=== PATIENT | female | born 1995 | race Caucasian/White ===

== ENCOUNTER 2016-08-08 21:41 | Emergency (ER) | payer OTHER ==
[2016-08-08 23:25] LABS: BASO % 0.5 % (0.0-1.0); EOS # 0.4 K/mm3 (0.0-0.50); EOS % 6.1 % (0.0-3.0); LARGE UNSTAINED CELL # 0.1 K/mm3 (0.0-0.4); LARGE UNSTAINED CELL % 1.8 % (0.0-4.0); LYMPH # 1.5 K/mm3 (1.5-6.5); LYMPH % 22.1 % (24.0-44.0); MEAN CORPUSCULAR HGB CONC 32.8 g/dl (32.0-36.5); MEAN CORPUSCULAR VOLUME 91.7 fl (80.0-96.0); MONO # 0.5 K/mm3 (0.0-0.8); MONO % 8.5 % (0.0-5.0); NEUTROPHILS # 3.8 K/mm3 (1.8-7.7); NEUTROPHILS % 61.1 % (36.0-66.0); PLATELET COUNT, AUTOMATED 279 k/mm3 (150-450); RED CELL DISTRIBUTION WIDTH 12.4 % (11.5-14.5); WHITE BLOOD COUNT 6.2 K/mm3 (4.0-10.0)
[2016-08-08 23:45] LABS: CONTROL LINE HCG INT CTR LINE PRESENT
[2016-08-08 23:50] LABS: ANION GAP 6 MEQ/L (8-16); BLOOD UREA NITROGEN 11 MG/DL (7-18); CALCIUM LEVEL 8.9 MG/DL (8.5-10.1); CARBON DIOXIDE LEVEL 27 MEQ/L (21-32); CHLORIDE LEVEL 105 MEQ/L (98-107); CREATININE FOR GFR 0.79 MG/DL (0.55-1.02); GLOMERULAR FILTRATION RATE > 60.0 (>60); GLUCOSE, FASTING 99 MG/DL (70-105); POTASSIUM SERUM 4.1 MEQ/L (3.5-5.1); SODIUM LEVEL 138 MEQ/L (136-145)
[2016-08-09] MEDS ORDERED: ISOVUE-370 76% 100ML VIAL (Q9967) As Ordered ONE (00:34)
--- NOTE | 2016-08-09 01:10 | REPUSA ---
CLINICAL HISTORY: Dyspnea, exclude PE. TECHNIQUE: Multiple incremental axial, coronal and oblique images are obtained from the thoracic inle t to the upper abdomen. Intravenous contrast material was administered as per pulmonary embolism prot ocol. COMMENTS: There is excellent opacification of pulmonary arterial system without evidence for pulmonary embolism . Aorta is of normal caliber without evidence for dissection or aneurysm. There is no evidence of pleural or parenchymal mass. There are no pleural effusions. There is no evid ence of hilar or mediastinal lymphadenopathy. The heart and great vessels are within normal limits. Images of the upper abdomen demonstrate no evidence of adrenal mass. Bilateral basilar atelectatic pu lmonary changes. The bony structures are free of lytic or blastic lesions. Multilevel degenerative changes are seen in volving the visualized thoracolumbar spine. Scattered calcifications are seen involving the aorta and major branches compatible with atherosclero sis. IMPRESSION: No evidence for pulmonary embolism. Thank you for your kind referral of this patient.
[2016-08-09] MEDS ORDERED: guaiFENesin SYRUP 200 MG/10 ML UDC As Ordered ONE (01:32)
[2016-08-09] MEDS ORDERED: guaiFENesin DM LIQ 10ML UD As Ordered ONE (01:33)
--- NOTE | 2016-08-09 01:43 | EDDOCDS ---
Nurse's Notes [facility] Name: Gudelia Villa Age: 21 yrs Sex: Female : 1995 Arrival Date: 08/08/2016 Time: 21:41 Bed 8 Private MD: Other - Complete Info On Cds Diagnosis: Acute upper respiratory infection, unspecified-viral;Cough Presentation: 08/08 21:48 Presenting complaint: Patient states: Cough for last 4 days, chest tight, bringing up [facility] green phlegm. Aspirin was not taken prior to arrival. Adult Sepsis Screening: The patient does not have new or worsening altered mentation. Patient's respiratory rate is less than 22. Systolic blood pressure is greater than 100. Patient has a qSOFA score of 0- Negative Sepsis Screen. Suicide/Homicide risk assessment- the patient denies having any suicidal and/or homicidal ideations and does not present with any other emotional, behavioral or mental health complaints. 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 Transition of care: patient was not received from another setting of care. 21:48 Acuity: MAT Level 4 [facility] 21:48 Method Of Arrival: Walkin/Carried/Asstd [facility] Triage Assessment: 21:50 General: Appears in no apparent distress, Behavior is cooperative. Pain: Location: [facility] throat Pain currently is 6 out of 10 on a pain scale. HIV screening NA for this visit Offered previously. Neurological: No deficits noted. Cardiovascular: Chest pain is described as vague, radiates Does not radiate. episodes are intermittent began 4 days ago. Respiratory: Airway is patent Respiratory effort is even, unlabored, Reports cough that is productive, persistent. Derm: Skin is pink, warm & dry. 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 BCP 1 tab once daily - PMHx: none; - PSHx: none; - Social history: Smoking status: Patient states was never smoker of tobacco. No barriers to communication noted, The patient speaks fluent Sao Tomean. - Family history: Not pertinent. - : The pt / caregiver states he / she is not on anticoagulants. Home medication list is obtained from the patient. 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 Screenin:22 Screening information is obtained from the patient. Screening information is obtained ko2 from the patient. Fall risk: No risks identified. Assistance ADL's: requires no assistance with activities of daily living. Abuse/DV Screen: The patient / caregiver reports he/she is: not in a situation that causes fear, pain or injury. Nutritional screening: No deficits noted. Advance Directives: Currently, there is no health care proxy. There is no active DNR order. There is no living will. 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 home support is adequate. Assessment: 23:22 General: Appears in no apparent distress, comfortable, Behavior is appropriate for age, ko2 cooperative. Pain: Denies pain. Neurological: Level of Consciousness is awake, alert. Cardiovascular: Capillary refill < 3 seconds Heart tones S1 S2 present Rhythm is. Respiratory: Airway is patent Respiratory effort is even, unlabored, Respiratory pattern is regular, symmetrical. Derm: Skin is normal. 08/09 00:29 General: Appears in no apparent distress, comfortable, Behavior is appropriate for age, ko2 cooperative. Pain: Denies pain. Neurological: Level of Consciousness is awake, alert. Respiratory: Airway is patent Respiratory effort is even, unlabored, Respiratory pattern is regular, symmetrical. Derm: Skin is normal. 01:10 General: Appears in no apparent distress, comfortable, pt currently resting on ko2 stretcher. No concerns at this time.. 01:40 General: Appears in no apparent distress, comfortable, Behavior is appropriate for age, ko2 cooperative. Pain: Denies pain. Neurological: Level of Consciousness is awake, alert. Respiratory: Airway is patent Respiratory effort is even, unlabored, Respiratory pattern is regular, symmetrical. Derm: Skin is normal. Vital Signs: 08/08 21:43 BP 126 / 79; Pulse 76; Resp 18 S; Temp 97.1(O); Pulse Ox 100% on R/A; Weight 68.04 kg gr2 (R); Height 5 ft. 4 in. (162.56 cm) (R); Pain 4/10; 08/09 01:29 BP 123 / 58; Pulse 84; Resp 18; Temp 98.5(TE); Pulse Ox 99% on R/A; Pain 0/10; mervin 08/08 21:43 Body Mass Index 25.75 (68.04 kg, 162.56 cm) [facility] Vitals: 08/08 21:43 Log In Time: August 08, 2016 at 21:43. gr2 ED Course: 21:43 Patient visited by Ed Siegel. gr2 21:43 Other - Complete Info On Cds is Private Physician. gr2 21:43 Patient moved to Waiting gr2 21:45 Patient visited by Ed Siegel. gr2 21:45 Patient moved to Pre RCE gr2 21:49 Triage Initiated mcp 21:51 Patient visited by Arelis Torres RN. mcp 22:32 Juan Ramon Sanchez DO is Attending Physician. cs11 22:34 Belkis Ford RN is Primary Nurse. cz 22:34 Patient visited by Juan Ramon Sanchez DO. cs11 22:34 Patient moved to 8 cz 23:22 HCG,Serum Qualitative Sent. ko2 23:22 MED Profile Sent. ko2 23:22 CBC with Diff Sent. ko2 23:23 Patient visited by Belkis Ford RN. ko2 23:23 Inserted saline lock: 20 gauge in right antecubital area and blood collected. The ko2 patient tolerated the procedure well. 23:36 Patient name changed from Gudeila\S\A\S\Villa\S\ to Gudelia\S\Zander\S\Villa. EDMS 23:48 [facility] Payment Agreement was scanned into [employer] and attached to record. pm4 02/05 00:09 Patient visited by Belkis Ford RN. ko2 01:08 Patient visited by Belkis Ford,MURPHY. ko2 01:11 The patient / caregiver is instructed regarding the plan of care and ED course. Cardiac ko2 monitor on. Pulse ox on. NIBP on. 01:15 CT Chest Angio R/O PE Returned. EDMS 01:30 Patient visited by Henrietta Adkins, GURMEET. mervin 01:40 Patient visited by Belkis Ford,MURPHY. ko2 01:41 Discontinued lock intact, bleeding controlled, pressure dressing applied, No ko2 redness/swelling at site. No procedures done that require assistance. Administered Medications: 00:22 Drug: NS 0.9% 1000 ml [sodium chloride 0.9 % intravenous solution] Route: IV; Rate: ko2 bolus; Site: right antecubital; :42 Follow up: IV Status: Completed infusion; IV Intake: 1000ml ko2 01:42 Drug: Dextromethorphan-Guaifenesin 5 ml [dextromethorphan-guaifenesin 10 mg-100 mg/5 mL ko2 oral liquid (5 mL)] Route: PO; Intake: 01:42 IV: 1000.00ml; Total: 1000.00ml. ko2 Order Results: Lab Order: CBC with Diff; SPEC'M 08/08/16 23:20 Test: WHITE BLOOD COUNT; Value: 6.2; Range: 4.0-10.0; Units: K/mm3; Status: F Test: RED BLOOD COUNT; Value: 4.21; Range: 4.00-5.40; Units: M/mm3; Status: F Test: HEMOGLOBIN; Value: 12.7; Range: 12.0-16.0; Units: g/dl; Status: F Test: HEMATOCRIT; Value: 38.6; Range: 36.0-47.0; Units: %; Status: F Test: MEAN CORPUSCULAR VOLUME; Value: 91.7; Range: 80.0-96.0; Units: fl; Status: F Test: MEAN CORPUSCULAR HEMOGLOBIN; Value: 30.0; Range: 27.0-33.0; Units: pg; Status: F Test: MEAN CORPUSCULAR HGB CONC; Value: 32.8; Range: 32.0-36.5; Units: g/dl; Status: F Test: RED CELL DISTRIBUTION WIDTH; Value: 12.4; Range: 11.5-14.5; Units: %; Status: F Test: PLATELET COUNT, AUTOMATED; Value: 279; Range: 150-450; Units: k/mm3; Status: F Test: NEUTROPHILS %; Value: 61.1; Range: 36.0-66.0; Units: %; Status: F Test: LYMPH %; Value: 22.1; Range: 24.0-44.0; Abnormal: Below low normal; Units: %; Status: F Test: MONO %; Value: 8.5; Range: 0.0-5.0; Abnormal: Above high normal; Units: %; Status: F Test: EOS %; Value: 6.1; Range: 0.0-3.0; Abnormal: Above high normal; Units: %; Status: F Test: BASO %; Value: 0.5; Range: 0.0-1.0; Units: %; Status: F Test: LARGE UNSTAINED CELL %; Value: 1.8; Range: 0.0-4.0; Units: %; Status: F Test: NEUTROPHILS #; Value: 3.8; Range: 1.8-7.7; Units: K/mm3; Status: F Test: LYMPH #; Value: 1.5; Range: 1.5-6.5; Units: K/mm3; Status: F Test: MONO #; Value: 0.5; Range: 0.0-0.8; Units: K/mm3; Status: F Test: EOS #; Value: 0.4; Range: 0.0-0.50; Units: K/mm3; Status: F Test: BASO #; Value: 0.0; Range: 0.0-0.2; Units: K/mm3; Status: F Test: LARGE UNSTAINED CELL #; Value: 0.1; Range: 0.0-0.4; Units: K/mm3; Status: F Lab Order: MED Profile; [facility]' 08/08/16 23:20 Test: GLUCOSE, FASTING; Value: 99; Range: 70-105; Units: MG/DL; Status: F Test: BLOOD UREA NITROGEN; Value: 11; Range: 7-18; Units: MG/DL; Status: F Test: CREATININE FOR GFR; Value: 0.79; Range: 0.55-1.02; Units: MG/DL; Status: F Test: SODIUM LEVEL; Range: 136-145; Units: MEQ/L; Status: I Test: POTASSIUM SERUM; Range: 3.5-5.1; Units: MEQ/L; Status: I Test: CHLORIDE LEVEL; Range: 98-107; Units: MEQ/L; Status: I Test: CARBON DIOXIDE LEVEL; Range: 21-32; Units: MEQ/L; Status: I Test: ANION GAP; Range: 8-16; Units: MEQ/L; Status: I Test: CALCIUM LEVEL; Range: 8.5-10.1; Units: MG/DL; Status: I Test: GLOMERULAR FILTRATION RATE; Value: > 60.0; Range: >60; Status: F Test: SODIUM LEVEL; Value: 138; Range: 136-145; Units: MEQ/L; Status: F Test: POTASSIUM SERUM; Value: 4.1; Range: 3.5-5.1; Units: MEQ/L; Status: F Test: CHLORIDE LEVEL; Value: 105; Range: 98-107; Units: MEQ/L; Status: F Test: CARBON DIOXIDE LEVEL; Value: 27; Range: 21-32; Units: MEQ/L; Status: F Test: ANION GAP; Value: 6; Range: 8-16; Abnormal: Below low normal; Units: MEQ/L; Status: F Test: CALCIUM LEVEL; Value: 8.9; Range: 8.5-10.1; Units: MG/DL; Status: F Test Note: ; Units are mL/min/1.73 m2 Chronic Kidney Disease Staging per NKF: Stage I & II GFR >=60 Normal to Mildly Decreased Stage III GFR 30-59 Moderately Decreased Stage IV GFR 15-29 Severely Decreased Stage V GFR <15 Very Little GFR Left ESRD GFR <15 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 Intravenous contrast material was administered as per pulmonary embolism prot; ocol.; COMMENTS:; There is excellent opacification of pulmonary arterial system without evidence for pulmonary embolism; . Aorta is of normal caliber without evidence for dissection or aneurysm.; There is no evidence of pleural or parenchymal mass. There are no pleural effusions. There is no evid; ence of hilar or mediastinal lymphadenopathy. The heart and great vessels are within normal limits.; Images of the upper abdomen demonstrate no evidence of adrenal mass. Bilateral basilar atelectatic pu; lmonary changes.; The bony structures are free of lytic or blastic lesions. Multilevel degenerative changes are seen in; volving the visualized thoracolumbar spine.; Scattered calcifications are seen involving the aorta and major branches compatible with atherosclero; sis.; IMPRESSION:; No evidence for pulmonary embolism.; Thank you for your kind referral of this patient.; ; Outcome: 01:11 CT Study completed. ko2 01:27 Discharge ordered by Provider. cs11 01:41 Discharge Assessment: Patient awake, alert and oriented x 3. No cognitive and/or ko2 functional deficits noted. Patient verbalized understanding of disposition instructions. patient administered narcotics - no. The following High Risk Discharge criteria are identified: None. Discharged to home ambulatory. Condition: stable. Discharge instructions given to patient, Instructed on discharge instructions, follow up and referral plans. medication usage, Demonstrated understanding of instructions, medications, Pt was receptive of discharge instructions/ teaching. Prescriptions given X 1. Property sent home with patient. 01:43 Patient left the ED. ko2 Signatures: Dispatcher [employer] EDArelis Meek, RN RN Olegario Whitley, MURPHY RN Henrietta Guido, SENIOR TECHNOLOGIST SENIOR TECHNOLOGIST Juan Ramon Vasquez, DO DO cs11 Ed Siegel gr2 Belkis Ford RN RN ko2 Rocky Nettles, Reg Reg pm4 CLAUDIA
--- NOTE | 2016-08-09 01:43 | EDDOCDS ---
Physician Documentation [facility] Name: Gudelia Villa Age: 21 yrs Sex: Female : 1995 Arrival Date: 08/08/2016 Time: 21:41 Bed 8 Private MD: Other - Complete Info On Cds Disposition: 08/09/16 01:27 Discharged to Home/Self Care. Impression: Acute upper respiratory infection, unspecified - viral, Cough. - Condition is Stable. - Prescriptions for dextromethorphan- guaifenesin 30-200 mg/5 mL Oral liquid - take 5 milliliter by ORAL route every 6 hours as needed; 1 bottle. - Medication Reconciliation, Local Pharmacy Hours form. - Follow up: Private Physician; When: Call to arrange an appointment; Reason: Recheck today's complaints. - Problem is an ongoing problem. - Symptoms have improved. Historical: - Allergies: no known allergies; - Home Meds: 1. BCP 1 tab once daily - PMHx: none; - PSHx: none; - Social history: Smoking status: Patient states was never smoker of tobacco. No barriers to communication noted, The patient speaks fluent Arabic. - Family history: Not pertinent. - : The pt / caregiver states he / she is not on anticoagulants. Home medication list is obtained from the patient. 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 4 in. (162.56 cm) (R); Pain 4/10; 08/09 01:29 BP 123 / 58; Pulse 84; Resp 18; Temp 98.5(TE); Pulse Ox 99% on R/A; Pain 0/10; mervin 08/08 21:43 Body Mass Index 25.75 (68.04 kg, 162.56 cm) gr2 MDM: 08/08 21:55 Chest, 2 View (pa\E\lat) Ordered. EDMS 22:49 IV Saline Lock ordered. cs11 22:50 CBC with Diff Ordered. EDMS 22:50 MED Profile Ordered. EDMS 22:50 HCG,Serum Qualitative Ordered. EDMS 23:13 Financial registration complete. pm4 23:48 [facility] Payment Agreement was scanned into [employer] and attached to record. pm4 23:55 CBC with Diff Reviewed. cs11 23:55 MED Profile Reviewed. cs11 23:55 HCG,Serum Qualitative Reviewed. cs11 23:56 NS 0.9% 1000 ml IV at bolus once ordered. cs11 23:57 CT Chest Angio R/O PE Ordered. EDMS 08/09 01:23 Dextromethorphan-Guaifenesin Liquid 10 mg-100 mg/5 mL 5 ml PO once ordered. cs11 01:24 CT Chest Angio R/O PE Reviewed. cs11 Administered Medications: 00:22 Drug: NS 0.9% 1000 ml [sodium chloride 0.9 % intravenous solution] Route: IV; Rate: ko2 bolus; Site: right antecubital; 01:42 Follow up: IV Status: Completed infusion; IV Intake: 1000ml ko2 01:42 Drug: Dextromethorphan-Guaifenesin 5 ml [dextromethorphan-guaifenesin 10 mg-100 mg/5 mL ko2 oral liquid (5 mL)] Route: PO; Signatures: Dispatcher [employer] [facility] Arelis Torres RN RN mcp Schiff, Craig, DO DO cs11 Belkis Ford RN RN ko2 Rocky Nettles, Reg Reg pm4 The chart was reviewed and I authenticate all verbal orders and agree with the evaluation and treatment provided.Attachments: 08/08 23:48 [facility] Payment Agreement pm4 MTDD
--- NOTE | 2016-08-09 08:31 | REP ---
CHEST X-RAY: Two views. HISTORY: Cough . No comparison study . FINDINGS: The lungs are well inflated and free of infiltrate. The pleural angles are sharp. The heart size is normal. Pulmonary vasculature is not increased. No significant bony abnormality is seen. IMPRESSION: Negative chest x-ray. Signed by Damon Pace MD 08/09/2016 11:01 A
--- NOTE | 2016-08-11 02:43 | EDDOCDS ---
Physician Documentation [facility] Name: Gudelia Villa Age: 21 yrs Sex: Female : 1995 Arrival Date: 08/08/2016 Time: 21:41 Bed 8 Private MD: Other - Complete Info On Cds Disposition: 08/09/16 01:27 Discharged to Home/Self Care. Impression: Acute upper respiratory infection, unspecified - viral, Cough. - Condition is Stable. - Prescriptions for dextromethorphan- guaifenesin 30-200 mg/5 mL Oral liquid - take 5 milliliter by ORAL route every 6 hours as needed; 1 bottle. - Medication Reconciliation, Local Pharmacy Hours form. - Follow up: Private Physician; When: Call to arrange an appointment; Reason: Recheck today's complaints. - Problem is an ongoing problem. - Symptoms have improved. Historical: - Allergies: no known allergies; - Home Meds: 1. BCP 1 tab once daily - PMHx: none; - PSHx: none; - Social history: Smoking status: Patient states was never smoker of tobacco. No barriers to communication noted, The patient speaks fluent Icelandic. - Family history: Not pertinent. - : The pt / caregiver states he / she is not on anticoagulants. Home medication list is obtained from the patient. 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 4 in. (162.56 cm) (R); Pain 4/10; 08/09 01:29 BP 123 / 58; Pulse 84; Resp 18; Temp 98.5(TE); Pulse Ox 99% on R/A; Pain 0/10; mervin 08/08 21:43 Body Mass Index 25.75 (68.04 kg, 162.56 cm) gr2 MDM: 08/08 21:55 Chest, 2 View (pa\E\lat) Ordered. EDMS 22:49 IV Saline Lock ordered. cs11 22:50 CBC with Diff Ordered. EDMS 22:50 MED Profile Ordered. EDMS 22:50 HCG,Serum Qualitative Ordered. EDMS 23:13 Financial registration complete. pm4 23:48 [facility] Payment Agreement was scanned into [employer] and attached to record. pm4 23:55 CBC with Diff Reviewed. cs11 23:55 MED Profile Reviewed. cs11 23:55 HCG,Serum Qualitative Reviewed. cs11 23:56 NS 0.9% 1000 ml IV at bolus once ordered. cs11 23:57 CT Chest Angio R/O PE Ordered. EDMS 0205 01:23 Dextromethorphan-Guaifenesin Liquid 10 mg-100 mg/5 mL 5 ml PO once ordered. cs11 01:24 CT Chest Angio R/O PE Reviewed. cs11 11:42 T-Sheet-- Draft Copy was scanned into [employer] and attached to record. gb Administered Medications: 00:22 Drug: NS 0.9% 1000 ml [sodium chloride 0.9 % intravenous solution] Route: IV; Rate: ko2 bolus; Site: right antecubital; 01:42 Follow up: IV Status: Completed infusion; IV Intake: 1000ml ko2 01:42 Drug: Dextromethorphan-Guaifenesin 5 ml [dextromethorphan-guaifenesin 10 mg-100 mg/5 mL ko2 oral liquid (5 mL)] Route: PO; Signatures: Dispatcher [employer] [facility] Arelis Torres RN MURPHY [facility] Lorrie De La Vega, Reg Reg gb Juan Ramon Sanchez DO DO cs11 Belkis Ford RN RN ko2 Rocky Nettles, Reg Reg pm4 The chart was reviewed and I authenticate all verbal orders and agree with the evaluation and treatment provided.Attachments: 08/08 23:48 [facility] Payment Agreement pm4 08/09 11:42 T-Sheet-- Draft Copy gb Chart Complete MTDD
--- NOTE | 2016-08-11 02:43 | EDDOCDS ---
Physician Documentation [facility] Name: Gudelia Villa Age: 21 yrs Sex: Female : 1995 Arrival Date: 08/08/2016 Time: 21:41 Bed 8 Private MD: Other - Complete Info On Cds Disposition: 08/09/16 01:27 Discharged to Home/Self Care. Impression: Acute upper respiratory infection, unspecified - viral, Cough. - Condition is Stable. - Prescriptions for dextromethorphan- guaifenesin 30-200 mg/5 mL Oral liquid - take 5 milliliter by ORAL route every 6 hours as needed; 1 bottle. - Medication Reconciliation, Local Pharmacy Hours form. - Follow up: Private Physician; When: Call to arrange an appointment; Reason: Recheck today's complaints. - Problem is an ongoing problem. - Symptoms have improved. Historical: - Allergies: no known allergies; - Home Meds: 1. BCP 1 tab once daily - PMHx: none; - PSHx: none; - Social history: Smoking status: Patient states was never smoker of tobacco. No barriers to communication noted, The patient speaks fluent Kiswahili. - Family history: Not pertinent. - : The pt / caregiver states he / she is not on anticoagulants. Home medication list is obtained from the patient. 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 4 in. (162.56 cm) (R); Pain 4/10; 08/09 01:29 BP 123 / 58; Pulse 84; Resp 18; Temp 98.5(TE); Pulse Ox 99% on R/A; Pain 0/10; mervin 08/08 21:43 Body Mass Index 25.75 (68.04 kg, 162.56 cm) gr2 MDM: 08/08 21:55 Chest, 2 View (pa\E\lat) Ordered. EDMS 22:49 IV Saline Lock ordered. cs11 22:50 CBC with Diff Ordered. EDMS 22:50 MED Profile Ordered. EDMS 22:50 HCG,Serum Qualitative Ordered. EDMS 23:13 Financial registration complete. pm4 23:48 [facility] Payment Agreement was scanned into [employer] and attached to record. pm4 23:55 CBC with Diff Reviewed. cs11 23:55 MED Profile Reviewed. cs11 23:55 HCG,Serum Qualitative Reviewed. cs11 23:56 NS 0.9% 1000 ml IV at bolus once ordered. cs11 23:57 CT Chest Angio R/O PE Ordered. EDMS 0205 01:23 Dextromethorphan-Guaifenesin Liquid 10 mg-100 mg/5 mL 5 ml PO once ordered. cs11 01:24 CT Chest Angio R/O PE Reviewed. cs11 11:42 T-Sheet-- Draft Copy was scanned into [employer] and attached to record. gb Administered Medications: 00:22 Drug: NS 0.9% 1000 ml [sodium chloride 0.9 % intravenous solution] Route: IV; Rate: ko2 bolus; Site: right antecubital; 01:42 Follow up: IV Status: Completed infusion; IV Intake: 1000ml ko2 01:42 Drug: Dextromethorphan-Guaifenesin 5 ml [dextromethorphan-guaifenesin 10 mg-100 mg/5 mL ko2 oral liquid (5 mL)] Route: PO; Signatures: Dispatcher [employer] [facility] Arelis Torres RN MURPHY [facility] Lorrie De La Vega, Reg Reg gb Juan Ramon Sanchez DO DO cs11 Belkis Ford RN RN ko2 Rocky Nettles, Reg Reg pm4 The chart was reviewed and I authenticate all verbal orders and agree with the evaluation and treatment provided.Attachments: 08/08 23:48 [facility] Payment Agreement pm4 08/09 11:42 T-Sheet-- Draft Copy gb Chart Complete MTDD
--- NOTE | 2016-08-11 02:44 | EDDOCDS ---
Nurse's Notes [facility] Name: Gudelia Villa Age: 21 yrs Sex: Female : 1995 Arrival Date: 08/08/2016 Time: 21:41 Bed 8 Private MD: Other - Complete Info On Cds Diagnosis: Acute upper respiratory infection, unspecified-viral;Cough Presentation: 08/08 21:48 Presenting complaint: Patient states: Cough for last 4 days, chest tight, bringing up [facility] green phlegm. Aspirin was not taken prior to arrival. Adult Sepsis Screening: The patient does not have new or worsening altered mentation. Patient's respiratory rate is less than 22. Systolic blood pressure is greater than 100. Patient has a qSOFA score of 0- Negative Sepsis Screen. Suicide/Homicide risk assessment- the patient denies having any suicidal and/or homicidal ideations and does not present with any other emotional, behavioral or mental health complaints. 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 Transition of care: patient was not received from another setting of care. 21:48 Acuity: MAT Level 4 [facility] 21:48 Method Of Arrival: Walkin/Carried/Asstd [facility] Triage Assessment: 21:50 General: Appears in no apparent distress, Behavior is cooperative. Pain: Location: [facility] throat Pain currently is 6 out of 10 on a pain scale. HIV screening NA for this visit Offered previously. Neurological: No deficits noted. Cardiovascular: Chest pain is described as vague, radiates Does not radiate. episodes are intermittent began 4 days ago. Respiratory: Airway is patent Respiratory effort is even, unlabored, Reports cough that is productive, persistent. Derm: Skin is pink, warm & dry. 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 BCP 1 tab once daily - PMHx: none; - PSHx: none; - Social history: Smoking status: Patient states was never smoker of tobacco. No barriers to communication noted, The patient speaks fluent Jordanian. - Family history: Not pertinent. - : The pt / caregiver states he / she is not on anticoagulants. Home medication list is obtained from the patient. 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 Screenin:22 Screening information is obtained from the patient. Screening information is obtained ko2 from the patient. Fall risk: No risks identified. Assistance ADL's: requires no assistance with activities of daily living. Abuse/DV Screen: The patient / caregiver reports he/she is: not in a situation that causes fear, pain or injury. Nutritional screening: No deficits noted. Advance Directives: Currently, there is no health care proxy. There is no active DNR order. There is no living will. There is no Power of Beater Machine Operator. home support is adequate. Assessment: 23:22 General: Appears in no apparent distress, comfortable, Behavior is appropriate for age, ko2 cooperative. Pain: Denies pain. Neurological: Level of Consciousness is awake, alert. Cardiovascular: Capillary refill < 3 seconds Heart tones S1 S2 present Rhythm is. Respiratory: Airway is patent Respiratory effort is even, unlabored, Respiratory pattern is regular, symmetrical. Derm: Skin is normal. 08/09 00:29 General: Appears in no apparent distress, comfortable, Behavior is appropriate for age, ko2 cooperative. Pain: Denies pain. Neurological: Level of Consciousness is awake, alert. Respiratory: Airway is patent Respiratory effort is even, unlabored, Respiratory pattern is regular, symmetrical. Derm: Skin is normal. 01:10 General: Appears in no apparent distress, comfortable, pt currently resting on ko2 stretcher. No concerns at this time.. 01:40 General: Appears in no apparent distress, comfortable, Behavior is appropriate for age, ko2 cooperative. Pain: Denies pain. Neurological: Level of Consciousness is awake, alert. Respiratory: Airway is patent Respiratory effort is even, unlabored, Respiratory pattern is regular, symmetrical. Derm: Skin is normal. Vital Signs: 08/08 21:43 BP 126 / 79; Pulse 76; Resp 18 S; Temp 97.1(O); Pulse Ox 100% on R/A; Weight 68.04 kg gr2 (R); Height 5 ft. 4 in. (162.56 cm) (R); Pain 4/10; 08/09 01:29 BP 123 / 58; Pulse 84; Resp 18; Temp 98.5(TE); Pulse Ox 99% on R/A; Pain 0/10; mervin 08/08 21:43 Body Mass Index 25.75 (68.04 kg, 162.56 cm) [facility] Vitals: 08/08 21:43 Log In Time: August 08, 2016 at 21:43. gr2 ED Course: 21:43 Patient visited by Ed Siegel. gr2 21:43 Other - Complete Info On Cds is Private Physician. gr2 21:43 Patient moved to Waiting gr2 21:45 Patient visited by Ed Siegel. gr2 21:45 Patient moved to Pre RCE gr2 21:49 Triage Initiated mcp 21:51 Patient visited by Arelis Torres RN. mcp 22:32 Juan Ramon Sanchez DO is Attending Physician. cs11 22:34 Belkis Ford RN is Primary Nurse. cz 22:34 Patient visited by Juan Ramon Sanchez DO. cs11 22:34 Patient moved to 8 cz 23:22 HCG,Serum Qualitative Sent. ko2 23:22 MED Profile Sent. ko2 23:22 CBC with Diff Sent. ko2 23:23 Patient visited by Belkis Ford RN. ko2 23:23 Inserted saline lock: 20 gauge in right antecubital area and blood collected. The ko2 patient tolerated the procedure well. 23:36 Patient name changed from Gudelia\S\A\S\Villa\S\ to Gudelia\S\Zander\S\Villa. EDMS 23:48 [facility] [place] was scanned into [employer] and attached to record. pm4 02/05 00:09 Patient visited by Belkis Ford RN. ko2 01:08 Patient visited by Belkis Ford,MURPHY. ko2 01:11 The patient / caregiver is instructed regarding the plan of care and ED course. Cardiac ko2 monitor on. Pulse ox on. NIBP on. 01:15 CT Chest Angio R/O PE Returned. EDMS 01:30 Patient visited by Henrietta Adkins, GURMEET. mervin 01:40 Patient visited by Belkis Ford,MURPHY. ko2 01:41 Discontinued lock intact, bleeding controlled, pressure dressing applied, No ko2 redness/swelling at site. No procedures done that require assistance. 08:45 Chest, 2 View (pa\E\lat) Returned. EDMS 11:42 T-Sheet-- Draft Copy was scanned into [employer] and attached to record. gb Administered Medications: 00:22 Drug: NS 0.9% 1000 ml [sodium chloride 0.9 % intravenous solution] Route: IV; Rate: ko2 bolus; Site: right antecubital; 01:42 Follow up: IV Status: Completed infusion; IV Intake: 1000ml ko2 01:42 Drug: Dextromethorphan-Guaifenesin 5 ml [dextromethorphan-guaifenesin 10 mg-100 mg/5 mL ko2 oral liquid (5 mL)] Route: PO; Intake: 01:42 IV: 1000.00ml; Total: 1000.00ml. ko2 Order Results: Lab Order: CBC with Diff; SPEC'M 08/08/16 23:20 Test: WHITE BLOOD COUNT; Value: 6.2; Range: 4.0-10.0; Units: K/mm3; Status: F Test: RED BLOOD COUNT; Value: 4.21; Range: 4.00-5.40; Units: M/mm3; Status: F Test: HEMOGLOBIN; Value: 12.7; Range: 12.0-16.0; Units: g/dl; Status: F Test: HEMATOCRIT; Value: 38.6; Range: 36.0-47.0; Units: %; Status: F Test: MEAN CORPUSCULAR VOLUME; Value: 91.7; Range: 80.0-96.0; Units: fl; Status: F Test: MEAN CORPUSCULAR HEMOGLOBIN; Value: 30.0; Range: 27.0-33.0; Units: pg; Status: F Test: MEAN CORPUSCULAR HGB CONC; Value: 32.8; Range: 32.0-36.5; Units: g/dl; Status: F Test: RED CELL DISTRIBUTION WIDTH; Value: 12.4; Range: 11.5-14.5; Units: %; Status: F Test: PLATELET COUNT, AUTOMATED; Value: 279; Range: 150-450; Units: k/mm3; Status: F Test: NEUTROPHILS %; Value: 61.1; Range: 36.0-66.0; Units: %; Status: F Test: LYMPH %; Value: 22.1; Range: 24.0-44.0; Abnormal: Below low normal; Units: %; Status: F Test: MONO %; Value: 8.5; Range: 0.0-5.0; Abnormal: Above high normal; Units: %; Status: F Test: EOS %; Value: 6.1; Range: 0.0-3.0; Abnormal: Above high normal; Units: %; Status: F Test: BASO %; Value: 0.5; Range: 0.0-1.0; Units: %; Status: F Test: LARGE UNSTAINED CELL %; Value: 1.8; Range: 0.0-4.0; Units: %; Status: F Test: NEUTROPHILS #; Value: 3.8; Range: 1.8-7.7; Units: K/mm3; Status: F Test: LYMPH #; Value: 1.5; Range: 1.5-6.5; Units: K/mm3; Status: F Test: MONO #; Value: 0.5; Range: 0.0-0.8; Units: K/mm3; Status: F Test: EOS #; Value: 0.4; Range: 0.0-0.50; Units: K/mm3; Status: F Test: BASO #; Value: 0.0; Range: 0.0-0.2; Units: K/mm3; Status: F Test: LARGE UNSTAINED CELL #; Value: 0.1; Range: 0.0-0.4; Units: K/mm3; Status: F Lab Order: MED Profile; [facility] 08/08/16 23:20 Test: GLUCOSE, FASTING; Value: 99; Range: 70-105; Units: MG/DL; Status: F Test: BLOOD UREA NITROGEN; Value: 11; Range: 7-18; Units: MG/DL; Status: F Test: CREATININE FOR GFR; Value: 0.79; Range: 0.55-1.02; Units: MG/DL; Status: F Test: SODIUM LEVEL; Range: 136-145; Units: MEQ/L; Status: I Test: POTASSIUM SERUM; Range: 3.5-5.1; Units: MEQ/L; Status: I Test: CHLORIDE LEVEL; Range: 98-107; Units: MEQ/L; Status: I Test: CARBON DIOXIDE LEVEL; Range: 21-32; Units: MEQ/L; Status: I Test: ANION GAP; Range: 8-16; Units: MEQ/L; Status: I Test: CALCIUM LEVEL; Range: 8.5-10.1; Units: MG/DL; Status: I Test: GLOMERULAR FILTRATION RATE; Value: > 60.0; Range: >60; Status: F Test: SODIUM LEVEL; Value: 138; Range: 136-145; Units: MEQ/L; Status: F Test: POTASSIUM SERUM; Value: 4.1; Range: 3.5-5.1; Units: MEQ/L; Status: F Test: CHLORIDE LEVEL; Value: 105; Range: 98-107; Units: MEQ/L; Status: F Test: CARBON DIOXIDE LEVEL; Value: 27; Range: 21-32; Units: MEQ/L; Status: F Test: ANION GAP; Value: 6; Range: 8-16; Abnormal: Below low normal; Units: MEQ/L; Status: F Test: CALCIUM LEVEL; Value: 8.9; Range: 8.5-10.1; Units: MG/DL; Status: F Test Note: ; Units are mL/min/1.73 m2 Chronic Kidney Disease Staging per NKF: Stage I & II GFR >=60 Normal to Mildly Decreased Stage III GFR 30-59 Moderately Decreased Stage IV GFR 15-29 Severely Decreased Stage V GFR <15 Very Little GFR Left ESRD GFR <15 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 The pleural; angles are sharp. The heart size is normal. Pulmonary vasculature is not; increased. No significant bony abnormality is seen.; ; IMPRESSION:; ; Negative chest x-ray.; ; ; Signed by; Damon Pace MD 08/09/2016 11:01 A; Radiology Order: CT Chest Angio R/O PE Test: CT Chest Angio R/O PE REASON FOR EXAMINATION: Chest Pain; ; CLINICAL HISTORY: Dyspnea, exclude PE.; TECHNIQUE: Multiple incremental axial, coronal and oblique images are obtained from the thoracic inle; t to the upper abdomen. Intravenous contrast material was administered as per pulmonary embolism prot; ocol.; COMMENTS:; There is excellent opacification of pulmonary arterial system without evidence for pulmonary embolism; . Aorta is of normal caliber without evidence for dissection or aneurysm.; There is no evidence of pleural or parenchymal mass. There are no pleural effusions. There is no evid; ence of hilar or mediastinal lymphadenopathy. The heart and great vessels are within normal limits.; Images of the upper abdomen demonstrate no evidence of adrenal mass. Bilateral basilar atelectatic pu; lmonary changes.; The bony structures are free of lytic or blastic lesions. Multilevel degenerative changes are seen in; volving the visualized thoracolumbar spine.; Scattered calcifications are seen involving the aorta and major branches compatible with atherosclero; sis.; IMPRESSION:; No evidence for pulmonary embolism.; Thank you for your kind referral of this patient.; ; Outcome: 01:11 CT Study completed. ko2 01:27 Discharge ordered by Provider. cs11 01:41 Discharge Assessment: Patient awake, alert and oriented x 3. No cognitive and/or ko2 functional deficits noted. Patient verbalized understanding of disposition instructions. patient administered narcotics - no. The following High Risk Discharge criteria are identified: None. Discharged to home ambulatory. Condition: stable. Discharge instructions given to patient, Instructed on discharge instructions, follow up and referral plans. medication usage, Demonstrated understanding of instructions, medications, Pt was receptive of discharge instructions/ teaching. Prescriptions given X 1. Property sent home with patient. 01:43 Patient left the ED. ko2 Signatures: Dispatcher [employer] EDMS Arelis Torres RN RN mcp Zecher, Calvin, RN RN cz Barnhardt, Gloria, Reg Reg gb Henrietta Adkins, SPOUT POSITIONER SPOUT POSITIONER Juan Ramon Vasquez, DO DO cs11 Ed Siegel gr2 Belkis Ford RN RN ko2 Rocky Nettles, Reg Reg pm4 Chart Complete MTDD
== END 2016-08-09 01:43 | disposition home or self-care (01) ==
LOC: M ED 21:41
DX: J06.9 Acute upper respiratory infection, unspecified (principal); Z79.3 Long term (current) use of hormonal contraceptives
CPT/HCPCS: 36415; 71020; 71275; 80048; 84703; 85025; 96360; 99285; Q9967

== ENCOUNTER 2016-08-14 01:20 | Emergency (ER) | payer OTHER ==
[2016-08-14] MEDS ORDERED: predniSONE 20 MG TAB As Ordered ONE (04:26)
[2016-08-14] MEDS ORDERED: BENZONATATE 100 MG CAP As Ordered ONE (04:28)
--- NOTE | 2016-08-14 05:28 | EDDOCDS ---
Nurse's Notes [facility] Name: Gudelia Villa Age: 21 yrs Sex: Female : 1995 Arrival Date: 08/14/2016 Time: 01:20 Bed 5 Private MD: Diagnosis: Acute bronchitis Presentation: 08/14 01:37 Presenting complaint: Patient states: cough for the past week now has a fever son also cz sick. Adult Sepsis Screening: The patient does not have new or worsening altered mentation. Patient's respiratory rate is less than 22. Systolic blood pressure is greater than 100. Patient has a qSOFA score of 0- Negative Sepsis Screen. Suicide/Homicide risk assessment- the patient denies having any suicidal and/or homicidal ideations and does not present with any other emotional, behavioral or mental health complaints. 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 Transition of care: patient was not received from another setting of care. 01:37 Method Of Arrival: Walkin/Carried/Asstd cz 02:03 Acuity: MAT Level 4 cz Triage Assessment: 01:39 General: Appears uncomfortable. Pain: Location: chest Pain currently is 6 out of 10 on cz a pain scale. HIV screening NA for this visit Offered previously. 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 BCP Oral 1 tab once daily - PMHx: none; - PSHx: none; - Social history: Smoking status: Patient states was never smoker of tobacco. No barriers to communication noted, The patient speaks fluent Pitc[place] Islander, Speaks appropriately for age. - Family history: Not pertinent. - : The pt / caregiver states he / she is not on anticoagulants. Home medication list is obtained from the patient. 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 Screenin:52 Screening information is obtained from the patient. Fall risk: No risks identified. ko2 Assistance ADL's: requires no assistance with activities of daily living. Abuse/DV Screen: The patient / caregiver reports he/she is: not in a situation that causes fear, pain or injury. Nutritional screening: No deficits noted. Advance Directives: Currently, there is no health care proxy. There is no active DNR order. There is no living will. There is no Power of Kiln Operator. home support is adequate. Assessment: 03:51 General: Appears in no apparent distress, comfortable, Behavior is appropriate for age, ko2 cooperative. Pain: Location: chest. Neurological: Level of Consciousness is awake. Respiratory: Airway is patent Respiratory effort is even, unlabored, Reports cough that is. Derm: Skin is normal. 05:26 General: Appears in no apparent distress, comfortable, Behavior is appropriate for age, ko2 cooperative. Pain: Location: chest. Neurological: Level of Consciousness is awake. Respiratory: Airway is patent Respiratory effort is even, unlabored. Derm: Skin is normal. Vital Signs: 01:39 BP 109 / 63; Pulse 77; Resp 16; Temp 98.4(T); Pulse Ox 98% on R/A; Weight 68.04 kg; cz Height 64 in. (162.56 cm); 05:17 BP 110 / 68; Pulse 72; Resp 16; Temp 98.3; Pulse Ox 99% ; Pain 0/10; ko2 01:39 Body Mass Index 25.75 (68.04 kg, 162.56 cm) Vitals: 01:39 Log In Time: August 14, 2016 at 01:20. ED Course: 01:23 Patient visited by Rocky Nettles Reg. pm4 01:23 Patient moved to Waiting pm4 01:37 Patient moved to Triage 1 cz 01:41 Patient moved to MTA Wait cz 02:03 Triage Initiated cz 03:28 Patient moved to 5 cz 03:48 Patient visited by Belkis Ford RN. ko2 03:54 Ankur Rodney DO is Attending Physician. mm11 03:54 Patient visited by Ankur Rodney DO. mm11 04:12 Patient visited by Ankur Rodney DO. mm11 04:13 [facility]. mm11 04:31 [facility] Payment Agreement was scanned into [employer] and attached to record. hs2 05:27 The patient / caregiver is instructed regarding the plan of care and ED course. ko2 05:27 No IV's were initiated during this patient's visit. No procedures done that require ko2 assistance. Administered Medications: 03:30 Drug: predniSONE 40 mg [prednisone 20 mg tablet (2 tabs)] Route: PO; ko2 03:30 Drug: Tessalon 200 mg Route: PO; ko2 Order Results: There are currently no results for this order. Outcome: 04:13 Discharge ordered by Provider. mm11 05:27 Discharge Assessment: Patient awake, alert and oriented x 3. No cognitive and/or ko2 functional deficits noted. Patient verbalized understanding of disposition instructions. patient administered narcotics - no. The following High Risk Discharge criteria are identified: None. Discharged to home ambulatory. Condition: good. Discharge instructions given to patient, Instructed on discharge instructions, follow up and referral plans. medication usage, Demonstrated understanding of instructions, medications, Pt was receptive of discharge instructions/ teaching. Prescriptions given X 3. No special radiology studies were completed. Property sent home with patient. 05:28 Patient left the ED. ko2 Signatures: Olegario Lewis, RN RN Ankur Hinson DO DO mm11 Belkis Ford RN RN ko2 Tania Dobson, Reg Reg hs2 Rocky Nettles, Reg Reg pm4 CLAUDIA
--- NOTE | 2016-08-14 05:28 | EDDOCDS ---
Physician Documentation [facility] Name: Gudelia Villa Age: 21 yrs Sex: Female : 1995 Arrival Date: 08/14/2016 Time: 01:20 Bed 5 Private MD: Disposition: 08/14/16 04:13 Discharged to Home/Self Care. Impression: Acute bronchitis. - Condition is Stable. - Discharge Instructions: Acute Bronchitis, Viral Infections, Viral Infections, [id number]. - Prescriptions for Prednisone 20 mg Oral Tablet - take 2 tablet by ORAL route once daily for 5 days; 10 tablet. Mucinex 600 mg - take 1 tablet by ORAL route 2 times per day; 30 tablet. benzonatate 200 mg Oral Capsule - take 1 capsule by ORAL route 3 times per day As needed; 30 capsule. - Medication Reconciliation, Local Pharmacy Hours, Family Work Release, Work Release Form - 1 day form. - Follow up: Sarah Pandey [facility]; When: As needed; Reason: Continuance of care. - Problem is an acute exacerbation. - Symptoms have improved. Historical: - Allergies: No known drug Allergies; - Home Meds: 1. BCP Oral 1 tab once daily - PMHx: none; - PSHx: none; - Social history: Smoking status: Patient states was never smoker of tobacco. No barriers to communication noted, The patient speaks fluent Comoran, Speaks appropriately for age. - Family history: Not pertinent. - : The pt / caregiver states he / she is not on anticoagulants. Home medication list is obtained from the patient. 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 (162.56 cm); 05:17 BP 110 / 68; Pulse 72; Resp 16; Temp 98.3; Pulse Ox 99% ; Pain 0/10; ko2 01:39 Body Mass Index 25.75 (68.04 kg, 162.56 cm) cz MDM: 04:12 predniSONE 40 mg PO once; administer with food or milk ordered. mm11 04:12 Tessalon 200 mg PO once ordered. mm11 04:27 Financial registration complete. hs2 04:31 [facility] Payment Agreement was scanned into [employer] and attached to record. hs2 Administered Medications: 03:30 Drug: predniSONE 40 mg [prednisone 20 mg tablet (2 tabs)] Route: PO; ko2 03:30 Drug: Tessalon 200 mg Route: PO; ko2 Signatures: Olegario Lewis RN RN cz Ankur Rodney DO DO mm11 Belkis Ford RN RN ko2 Tania Dobson, Reg Reg hs2 The chart was reviewed and I authenticate all verbal orders and agree with the evaluation and treatment provided.Attachments: 04:31 [facility] Payment Agreement hs2 MTDD
--- NOTE | 2016-08-16 06:29 | EDDOCDS ---
Physician Documentation [facility] Name: Gudelia Villa Age: 21 yrs Sex: Female : 1995 Arrival Date: 08/14/2016 Time: 01:20 Bed 5 Private MD: Disposition: 08/14/16 04:13 Discharged to Home/Self Care. Impression: Acute bronchitis. - Condition is Stable. - Discharge Instructions: Acute Bronchitis, Viral Infections, Viral Infections, [id number]. - Prescriptions for Prednisone 20 mg Oral Tablet - take 2 tablet by ORAL route once daily for 5 days; 10 tablet. Mucinex 600 mg - take 1 tablet by ORAL route 2 times per day; 30 tablet. benzonatate 200 mg Oral Capsule - take 1 capsule by ORAL route 3 times per day As needed; 30 capsule. - Medication Reconciliation, Local Pharmacy Hours, Family Work Release, Work Release Form - 1 day form. - Follow up: Sarah Pandey [facility]; When: As needed; Reason: Continuance of care. - Problem is an acute exacerbation. - Symptoms have improved. Historical: - Allergies: No known drug Allergies; - Home Meds: 1. BCP Oral 1 tab once daily - PMHx: none; - PSHx: none; - Social history: Smoking status: Patient states was never smoker of tobacco. No barriers to communication noted, The patient speaks fluent Nauruan, Speaks appropriately for age. - Family history: Not pertinent. - : The pt / caregiver states he / she is not on anticoagulants. Home medication list is obtained from the patient. 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 (162.56 cm); 05:17 BP 110 / 68; Pulse 72; Resp 16; Temp 98.3; Pulse Ox 99% ; Pain 0/10; ko2 01:39 Body Mass Index 25.75 (68.04 kg, 162.56 cm) cz MDM: 04:12 predniSONE 40 mg PO once; administer with food or milk ordered. mm11 04:12 Tessalon 200 mg PO once ordered. mm11 04:27 Financial registration complete. hs2 04:31 [facility] Payment Agreement was scanned into [employer] and attached to record. hs2 13:55 T-Sheet-- Draft Copy was scanned into [employer] and attached to record. gb 13:55 Growth Chart was scanned into [employer] and attached to record. gb Administered Medications: 03:30 Drug: predniSONE 40 mg [prednisone 20 mg tablet (2 tabs)] Route: PO; ko2 03:30 Drug: Tessalon 200 mg Route: PO; ko2 Signatures: Olegario Lewis, RN RN cz Lorrie De La Vega, Reg Reg gb Ankur Rodney DO DO mm11 Belkis Ford RN RN ko2 Tania Dobson, Reg Reg hs2 The chart was reviewed and I authenticate all verbal orders and agree with the evaluation and treatment provided.Attachments: 04:31 [facility] Payment Agreement hs2 13:55 T-Sheet-- Draft Copy gb Chart Complete MTDD
--- NOTE | 2016-08-16 06:29 | EDDOCDS ---
Nurse's Notes [facility] Name: Gudelia Villa Age: 21 yrs Sex: Female : 1995 Arrival Date: 08/14/2016 Time: 01:20 Bed 5 Private MD: Diagnosis: Acute bronchitis Presentation: 08/14 01:37 Presenting complaint: Patient states: cough for the past week now has a fever son also cz sick. Adult Sepsis Screening: The patient does not have new or worsening altered mentation. Patient's respiratory rate is less than 22. Systolic blood pressure is greater than 100. Patient has a qSOFA score of 0- Negative Sepsis Screen. Suicide/Homicide risk assessment- the patient denies having any suicidal and/or homicidal ideations and does not present with any other emotional, behavioral or mental health complaints. 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 Transition of care: patient was not received from another setting of care. 01:37 Method Of Arrival: Walkin/Carried/Asstd cz 02:03 Acuity: MAT Level 4 cz Triage Assessment: 01:39 General: Appears uncomfortable. Pain: Location: chest Pain currently is 6 out of 10 on cz a pain scale. HIV screening NA for this visit Offered previously. 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 BCP Oral 1 tab once daily - PMHx: none; - PSHx: none; - Social history: Smoking status: Patient states was never smoker of tobacco. No barriers to communication noted, The patient speaks fluent Armenian, Speaks appropriately for age. - Family history: Not pertinent. - : The pt / caregiver states he / she is not on anticoagulants. Home medication list is obtained from the patient. 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 Screenin:52 Screening information is obtained from the patient. Fall risk: No risks identified. ko2 Assistance ADL's: requires no assistance with activities of daily living. Abuse/DV Screen: The patient / caregiver reports he/she is: not in a situation that causes fear, pain or injury. Nutritional screening: No deficits noted. Advance Directives: Currently, there is no health care proxy. There is no active DNR order. There is no living will. There is no Power of Compliance Project Manager. home support is adequate. Assessment: 03:51 General: Appears in no apparent distress, comfortable, Behavior is appropriate for age, ko2 cooperative. Pain: Location: chest. Neurological: Level of Consciousness is awake. Respiratory: Airway is patent Respiratory effort is even, unlabored, Reports cough that is. Derm: Skin is normal. 05:26 General: Appears in no apparent distress, comfortable, Behavior is appropriate for age, ko2 cooperative. Pain: Location: chest. Neurological: Level of Consciousness is awake. Respiratory: Airway is patent Respiratory effort is even, unlabored. Derm: Skin is normal. Vital Signs: 01:39 BP 109 / 63; Pulse 77; Resp 16; Temp 98.4(T); Pulse Ox 98% on R/A; Weight 68.04 kg; cz Height 64 in. (162.56 cm); 05:17 BP 110 / 68; Pulse 72; Resp 16; Temp 98.3; Pulse Ox 99% ; Pain 0/10; ko2 01:39 Body Mass Index 25.75 (68.04 kg, 162.56 cm) Vitals: 01:39 Log In Time: August 14, 2016 at 01:20. ED Course: 01:23 Patient visited by Rocky Nettles Reg. pm4 01:23 Patient moved to Waiting pm4 01:37 Patient moved to Triage 1 cz 01:41 Patient moved to MTA Wait cz 02:03 Triage Initiated cz 03:28 Patient moved to 5 cz 03:48 Patient visited by Belkis Ford RN. ko2 03:54 Ankur Rodney DO is Attending Physician. mm11 03:54 Patient visited by Ankur Rodney DO. mm11 04:12 Patient visited by Ankur Rodney DO. mm11 04:13 Sarah Pandey [facility] is Referral Physician. mm11 04:31 [facility] Payment Agreement was scanned into [employer] and attached to record. hs2 05:27 The patient / caregiver is instructed regarding the plan of care and ED course. ko2 05:27 No IV's were initiated during this patient's visit. No procedures done that require ko2 assistance. 13:55 T-Sheet-- Draft Copy was scanned into [employer] and attached to record. gb 13:55 Growth Chart was scanned into [employer] and attached to record. gb Administered Medications: 03:30 Drug: predniSONE 40 mg [prednisone 20 mg tablet (2 tabs)] Route: PO; ko2 03:30 Drug: Tessalon 200 mg Route: PO; ko2 Attachments: 13:55 Growth Chart Order Results: There are currently no results for this order. Outcome: 04:13 Discharge ordered by Provider. mm11 05:27 Discharge Assessment: Patient awake, alert and oriented x 3. No cognitive and/or ko2 functional deficits noted. Patient verbalized understanding of disposition instructions. patient administered narcotics - no. The following High Risk Discharge criteria are identified: None. Discharged to home ambulatory. Condition: good. Discharge instructions given to patient, Instructed on discharge instructions, follow up and referral plans. medication usage, Demonstrated understanding of instructions, medications, Pt was receptive of discharge instructions/ teaching. Prescriptions given X 3. No special radiology studies were completed. Property sent home with patient. 05:28 Patient left the ED. ko2 Signatures: Olegario Lewis RN RN cz Lorrie De La Vega, Reg Reg gb Ankur Rodney DO DO mm11 Belkis Ford RN RN ko2 Tania Dobson, Reg Reg hs2 Rocky Nettles, Reg Reg pm4 Chart Complete MTDD
--- NOTE | 2016-08-16 06:29 | EDDOCDS ---
Physician Documentation [facility] Name: Gudelia Villa Age: 21 yrs Sex: Female : 1995 Arrival Date: 08/14/2016 Time: 01:20 Bed 5 Private MD: Disposition: 08/14/16 04:13 Discharged to Home/Self Care. Impression: Acute bronchitis. - Condition is Stable. - Discharge Instructions: Acute Bronchitis, Viral Infections, Viral Infections, [id number]. - Prescriptions for Prednisone 20 mg Oral Tablet - take 2 tablet by ORAL route once daily for 5 days; 10 tablet. Mucinex 600 mg - take 1 tablet by ORAL route 2 times per day; 30 tablet. benzonatate 200 mg Oral Capsule - take 1 capsule by ORAL route 3 times per day As needed; 30 capsule. - Medication Reconciliation, Local Pharmacy Hours, Family Work Release, Work Release Form - 1 day form. - Follow up: Sarah Pandey [facility]; When: As needed; Reason: Continuance of care. - Problem is an acute exacerbation. - Symptoms have improved. Historical: - Allergies: No known drug Allergies; - Home Meds: 1. BCP Oral 1 tab once daily - PMHx: none; - PSHx: none; - Social history: Smoking status: Patient states was never smoker of tobacco. No barriers to communication noted, The patient speaks fluent Wallisian, Speaks appropriately for age. - Family history: Not pertinent. - : The pt / caregiver states he / she is not on anticoagulants. Home medication list is obtained from the patient. 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 (162.56 cm); 05:17 BP 110 / 68; Pulse 72; Resp 16; Temp 98.3; Pulse Ox 99% ; Pain 0/10; ko2 01:39 Body Mass Index 25.75 (68.04 kg, 162.56 cm) cz MDM: 04:12 predniSONE 40 mg PO once; administer with food or milk ordered. mm11 04:12 Tessalon 200 mg PO once ordered. mm11 04:27 Financial registration complete. hs2 04:31 [facility] Payment Agreement was scanned into [employer] and attached to record. hs2 13:55 T-Sheet-- Draft Copy was scanned into [employer] and attached to record. gb 13:55 Growth Chart was scanned into [employer] and attached to record. gb Administered Medications: 03:30 Drug: predniSONE 40 mg [prednisone 20 mg tablet (2 tabs)] Route: PO; ko2 03:30 Drug: Tessalon 200 mg Route: PO; ko2 Signatures: Olegario Lewis, RN RN cz Lorrie De La Vega, Reg Reg gb Ankur Rodney DO DO mm11 Belkis Ford RN RN ko2 Tania Dobson, Reg Reg hs2 The chart was reviewed and I authenticate all verbal orders and agree with the evaluation and treatment provided.Attachments: 04:31 [facility] Payment Agreement hs2 13:55 T-Sheet-- Draft Copy gb Chart Complete MTDD
== END 2016-08-14 05:28 | disposition home or self-care (01) ==
LOC: M ED 01:20
DX: J20.9 Acute bronchitis, unspecified (principal)

== ENCOUNTER 2016-10-25 12:14 | Emergency (ER) | payer OTHER ==
[~2016-10-25] VITALS: Ht 162.6 cm; Wt 68.9 kg
[2016-10-25 12:15] VITALS: BP 150/71
[2016-10-25] MEDS ORDERED: BCP'S PO (12:33)
[2016-10-25] MEDS ORDERED: NAPR500T PO (14:02)
[2016-10-25] MEDS ORDERED: NAPROXEN 250 MG TAB PO ONE (14:15)
== END 2016-10-25 14:22 | disposition home or self-care (01) ==
LOC: M ED 13:51
DX: G56.01 Carpal tunnel syndrome, right upper limb (principal)

== ENCOUNTER 2017-02-11 06:07 | Emergency (ER) | payer OTHER ==
[~2017-02-11] VITALS: Ht 162.6 cm; Wt 68.2 kg
[~2017-02-11 06:07] MED LIST: BCP'S PO; NAPR500T PO
[2017-02-11 06:19] VITALS: BP 125/67
[2017-02-11] MEDS ORDERED: MACR100C43 PO (06:50)
[2017-02-11] MEDS ORDERED: NITROFURANTOIN (MACROBID) 100 MG CAP PO ONE (07:00)
== END 2017-02-11 06:54 | disposition home or self-care (01) ==
LOC: M ED 06:07
DX: N39.0 Urinary tract infection, site not specified (principal); R31.9 Hematuria, unspecified

== ENCOUNTER 2017-02-16 11:27 | Emergency (ER) | payer OTHER ==
[~2017-02-16] VITALS: Ht 162.6 cm; Wt 78.3 kg
[~2017-02-16 11:27] MED LIST changes: +MACR100C43 PO
[2017-02-16 11:28] VITALS: BP 109/67
[2017-02-16] MEDS ORDERED: BACT800T5 PO (13:14)
[2017-02-16] MEDS ORDERED: PYRI1TAB5 PO (13:14)
== END 2017-02-16 13:21 | disposition home or self-care (01) ==
LOC: M ED 11:27
DX: N39.0 Urinary tract infection, site not specified (principal)

== ENCOUNTER 2017-05-04 08:31 | Emergency (ER) | payer OTHER ==
[~2017-05-04] VITALS: Ht 162.6 cm; Wt 73.0 kg
[~2017-05-04 08:31] MED LIST changes: +BACT800T5 PO; +PYRI1TAB5 PO
[2017-05-04 08:32] VITALS: BP 119/60
[2017-05-04] MEDS ORDERED: ORTHTAB14 PO (08:55)
[2017-05-04] MEDS ORDERED: BACT800T5 PO (09:13)
== END 2017-05-04 09:28 | disposition home or self-care (01) ==
LOC: M ED 08:31
DX: N61.1 Abscess of the breast and nipple (principal)

== ENCOUNTER 2017-09-11 01:12 | Emergency (ER) | payer OTHER ==
[2017-09-11] MEDS: ONDANSETRON 4 MG ORAL DISINTEGRATING TAB (S0181) PO (01:44)
== END 2017-09-11 01:47 | disposition home or self-care (01) ==
LOC: M ED 01:12
DX: A05.9 Bacterial foodborne intoxication, unspecified (principal); Z79.899 Other long term (current) drug therapy
CPT/HCPCS: 99282

== ENCOUNTER → 2017-12-24 | Outpatient (CLI) | payer OTHER | LOC: M RAD 09:41 | DX: M24.819 Other specific joint derangements of unspecified shoulder, not elsewhere classified (principal) ==

== ENCOUNTER 2018-01-03 10:49 | Emergency (ER) | payer OTHER ==
[2018-01-03] MEDS: NEOSPORIN OINT 0.9 GM PKT (FLOOR STOCK) TOP (13:45)
== END 2018-01-03 13:50 | disposition home or self-care (01) ==
LOC: M ED 10:49
DX: S61.411A Laceration without foreign body of right hand, initial encounter (principal); W25.XXXA Contact with sharp glass, initial encounter; Y92.009 Unspecified place in unspecified non-institutional (private) residence as the place of occurrence of the external cause; Z79.3 Long term (current) use of hormonal contraceptives
CPT/HCPCS: 73130

== ENCOUNTER 2018-03-11 22:48 | Emergency (ER) | payer OTHER ==
[2018-03-11] MEDS: ACETAMINOPHEN TAB 650MG DOSE (2X325MG) PO (23:39)
[2018-03-11 23:43] LABS: BASO % 0.2 % (0.0-1.0); EOS % 0.2 % (0.0-3.0); HEMATOCRIT 36.9 % (36.0-47.0); HEMOGLOBIN 12.4 g/dl (12.0-15.5); IMMATURE GRANULOCYTE % 0.3 % (0-3.0); LYMPH # 0.6 10^3/uL (1.5-6.5); LYMPH % 6.9 % (24.0-44.0); MEAN CORPUSCULAR HEMOGLOBIN 30.4 pg (27.0-33.0); MEAN CORPUSCULAR HGB CONC 33.6 g/dl (32.0-36.5); MEAN CORPUSCULAR VOLUME 90.4 fl (80.0-96.0); MONO # 0.7 10^3/uL (0.0-0.8); MONO % 7.5 % (0.0-5.0); NEUTROPHILS # 7.7 10^3/uL (1.8-7.7); NEUTROPHILS % 84.9 % (36.0-66.0); PLATELET COUNT, AUTOMATED 248 10^3/uL (150-450); RED BLOOD COUNT 4.08 10^6/uL (4.00-5.40); RED CELL DISTRIBUTION WIDTH 12.3 % (11.5-14.5); WHITE BLOOD COUNT 9.1 10^3/uL (4.0-10.0)
[2018-03-11] MEDS: NS 1,000 ML IV (23:43)
[2018-03-11 23:48] LABS: KETONE, URINE AUTO RFX NEGATIVE (NEGATIVE); LEUKOCYTE ESTERASE UR AUTO RFX NEGATIVE (NEGATIVE); NITRITE, URINE AUTO RFX NEGATIVE (NEGATIVE); RBC, URINE AUTO RFX 0 /HPF (0-3); SPECIFIC GRAVITY UR AUTO RFX 1.004 (1.002-1.035); SQUAM EPITHELIAL CELL UR AURFX 1 /HPF (0-6); WBC, URINE AUTO RFX 2 /HPF (0-3)
[2018-03-12 00:03] LABS: ALBUMIN 3.7 GM/DL (3.2-5.2); ALBUMIN/GLOBULIN RATIO 1.19 (1.00-1.93); ALKALINE PHOSPHATASE 57 U/L (45-117); ALT/SGPT 36 U/L (12-78); ANION GAP 8 MEQ/L (8-16); AST/SGOT 18 U/L (7-37); BILIRUBIN,DIRECT < 0.1 MG/DL (0.0-0.2); BILIRUBIN,TOTAL 0.3 MG/DL (0.2-1.0); BLOOD UREA NITROGEN 9 MG/DL (7-18); CALCIUM LEVEL 8.4 MG/DL (8.5-10.1); CARBON DIOXIDE LEVEL 25 MEQ/L (21-32); CHLORIDE LEVEL 105 MEQ/L (98-107); CREATININE FOR GFR 0.85 MG/DL (0.55-1.30); GLOMERULAR FILTRATION RATE > 60.0 (>60); GLUCOSE, FASTING 100 MG/DL (70-100); LIPASE 134 U/L (73-393); POTASSIUM SERUM 3.6 MEQ/L (3.5-5.1); SODIUM LEVEL 138 MEQ/L (136-145); TOTAL PROTEIN 6.8 GM/DL (6.4-8.2)
[2018-03-12 00:04] LABS: LACTIC ACID SEPSIS PROTOCOL 0.9 MMOL/L (0.4-2.0)
== END 2018-03-12 02:41 | disposition home or self-care (01) ==
LOC: M ED 03-12 02:41
DX: R55 Syncope and collapse (principal); J32.9 Chronic sinusitis, unspecified
CPT/HCPCS: 76856

== ENCOUNTER 2018-05-10 16:16 | Emergency (ER) | payer OTHER ==
[2018-05-10] MEDS: ONDANSETRON 4MG/2ML VIAL (J2405) IV (16:53)
[2018-05-10] MEDS: NS 1,000 ML IV (16:53)
[2018-05-10] MEDS: ACETAMINOPHEN 325 MG TAB PO (16:53)
[2018-05-10] MEDS: KETOROLAC 30 MG/ML VIAL (J1885) IV (16:53)
[2018-05-10 17:24] LABS: BASO % 0.2 % (0.0-1.0); EOS % 0.3 % (0.0-3.0); HEMATOCRIT 37.3 % (36.0-47.0); HEMOGLOBIN 12.4 g/dl (12.0-15.5); IMMATURE GRANULOCYTE % 0.5 % (0-3.0); LYMPH # 0.5 10^3/uL (1.5-6.5); LYMPH % 4.3 % (24.0-44.0); MEAN CORPUSCULAR HGB CONC 33.2 g/dl (32.0-36.5); MEAN CORPUSCULAR VOLUME 90.1 fl (80.0-96.0); MONO # 0.3 10^3/uL (0.0-0.8); MONO % 2.8 % (0.0-5.0); NEUTROPHILS # 10.6 10^3/uL (1.8-7.7); NEUTROPHILS % 91.9 % (36.0-66.0); PLATELET COUNT, AUTOMATED 282 10^3/uL (150-450); RED BLOOD COUNT 4.14 10^6/uL (4.00-5.40); RED CELL DISTRIBUTION WIDTH 12.9 % (11.5-14.5); WHITE BLOOD COUNT 11.5 10^3/uL (4.0-10.0)
[2018-05-10 17:36] LABS: KETONE, URINE AUTO RFX NEGATIVE (NEGATIVE); LEUKOCYTE ESTERASE UR AUTO RFX NEGATIVE (NEGATIVE); MUCUS, URINE RFX SMALL (NEGATIVE); NITRITE, URINE AUTO RFX NEGATIVE (NEGATIVE); RBC, URINE AUTO RFX 3 /HPF (0-3); SPECIFIC GRAVITY UR AUTO RFX 1.023 (1.002-1.035); SQUAM EPITHELIAL CELL UR AURFX 4 /HPF (0-6); WBC, URINE AUTO RFX 2 /HPF (0-3)
[2018-05-10 17:43] LABS: ANION GAP 6 MEQ/L (8-16); BLOOD UREA NITROGEN 12 MG/DL (7-18); CALCIUM LEVEL 8.9 MG/DL (8.5-10.1); CARBON DIOXIDE LEVEL 26 MEQ/L (21-32); CHLORIDE LEVEL 101 MEQ/L (98-107); CREATININE FOR GFR 0.81 MG/DL (0.55-1.30); GLOMERULAR FILTRATION RATE > 60.0 (>60); GLUCOSE, FASTING 95 MG/DL (70-100); POTASSIUM SERUM 3.8 MEQ/L (3.5-5.1); SODIUM LEVEL 133 MEQ/L (136-145)
[2018-05-10 17:51] LABS: INFLUENZA A AMPLIFICATION NEGATIVE (NEGATIVE); INFLUENZA B AMPLIFICATION NEGATIVE (NEGATIVE)
== END 2018-05-10 19:20 | disposition home or self-care (01) ==
LOC: M ED 16:16
DX: B34.9 Viral infection, unspecified (principal)
CPT/HCPCS: J2405

== ENCOUNTER → 2018-07-30 | Outpatient (REF) | payer OTHER ==
[~2018-07-30] MED LIST changes: +COLA100C5 PO; +DICL1GEL3; +EXCETAB80 PO; +NAPR-50 PO; -NAPR500T PO; +NORCOTAB PO; +ORTH1TAB16 PO; +PRENTAB55 PO; +PROC30SU PR; +TRIN1TAB2; +ZOFR4TAB14 PO
== END ==
LOC: M SFHCLERA 15:53
PROVIDERS: ATTEND Physician Assistant
DX: R10.32 Left lower quadrant pain (principal)

== ENCOUNTER 2019-04-06 15:53 | Emergency (ER) | payer OTHER ==
[~2019-04-06] VITALS: Ht 162.6 cm; Wt 85.4 kg
[~2019-04-06 15:53] MED LIST changes: +HYDR-3715 PO; -NAPR-50 PO; +NAPR-837 PO; -NORCOTAB PO; -ORTH1TAB16 PO; +ORTH1TAB8 PO
[2019-04-06] MEDS ORDERED: excedrin (15:59)
[2019-04-06 16:52] LABS: BASO % 0.5 % (0.0-1.0); EOS # 0.3 10^3/uL (0.0-0.5); EOS % 3.8 % (0.0-3.0); LYMPH # 1.7 10^3/uL (1.5-5.0); LYMPH % 21.5 % (24.0-44.0); MEAN CORPUSCULAR HEMOGLOBIN 30.8 pg (27.0-33.0); MEAN CORPUSCULAR HGB CONC 33.3 g/dl (32.0-36.5); MEAN CORPUSCULAR VOLUME 92.4 fl (80.0-96.0); MONO # 0.7 10^3/uL (0.0-0.8); MONO % 8.7 % (0.0-5.0); NEUTROPHILS # 5.1 10^3/uL (1.5-8.5); NEUTROPHILS % 65.2 % (36.0-66.0); PLATELET COUNT, AUTOMATED 333 10^3/uL (150-450); RED BLOOD COUNT 4.22 10^6/uL (4.00-5.40); WHITE BLOOD COUNT 7.9 10^3/uL (4.0-10.0)
[2019-04-06 17:15] LABS: ALBUMIN 4.1 GM/DL (3.2-5.2); ALT/SGPT 23 U/L (12-78); BILIRUBIN,DIRECT 0.1 MG/DL (0.0-0.2); BILIRUBIN,TOTAL 0.3 MG/DL (0.2-1.0); BLOOD UREA NITROGEN 15 MG/DL (7-18); CALCIUM LEVEL 9.4 MG/DL (8.5-10.1); CARBON DIOXIDE LEVEL 27 MEQ/L (21-32); CHLORIDE LEVEL 106 MEQ/L (98-107); CREATININE FOR GFR 0.91 MG/DL (0.55-1.30); GLOMERULAR FILTRATION RATE > 60.0 (>60); GLUCOSE, FASTING 91 MG/DL (70-100); LIPASE 180 U/L (73-393); POTASSIUM SERUM 4.4 MEQ/L (3.5-5.1); SODIUM LEVEL 139 MEQ/L (136-145); TOTAL PROTEIN 7.6 GM/DL (6.4-8.2)
[2019-04-06 17:57] VITALS: BP 122/71
== END 2019-04-06 18:03 | disposition home or self-care (01) ==
LOC: M ED 15:53
DX: Z32.01 Encounter for pregnancy test, result positive (principal)

== ENCOUNTER 2019-05-03 07:32 | Emergency (ER) | payer OTHER ==
[~2019-05-03] VITALS: Ht 162.6 cm; Wt 87.9 kg
[~2019-05-03 07:32] MED LIST changes: +excedrin
[2019-05-03 07:33] VITALS: BP 120/55
[2019-05-03] MEDS ORDERED: PREN1TAB14 (07:42)
--- NOTE | 2019-05-03 09:59 | REP ---
Clinical: Threatened . Dating and viability. Technique: Transabdominal and transvaginal first trimester obstetrical ultrasound with color Doppler evaluation. Findings: Ultrasound examination demonstrates a single live early intrauterine . Gestational sac with yolk sac and pole identified. CRL of 9 mm corresponds to 6 week 6 days gestational age with estimated date of delivery 12/21/2019. heart rate equals 150 beats per minute. A small subchorionic hemorrhage is identified measuring 16 x 7 x 15 mm. There is a complex hyperechoic lesion in the left ovary measuring 2.2 x 1.7 x 1.7 cm which may represent hemorrhagic corpus luteum. The right ovary and maternal pelvis appears normal. Impression: 1. Live intrauterine at 6 week 6 days gestational age. Complete anatomical assessment should be performed at 19-20 weeks. 2. Small subchorionic hemorrhage likely to resolve. 3. Complex hyperechoic lesion in the left ovary likely hemorrhagic corpus luteum. Electronically Signed by Mychal Grubbs MD 05/03/2019 09:50 A
== END 2019-05-03 10:21 | disposition home or self-care (01) ==
LOC: M ED 07:32
DX: O20.0 Threatened abortion (principal); Z3A.01 Less than 8 weeks gestation of pregnancy

== ENCOUNTER 2019-06-28 10:40 | Emergency (ER) | payer OTHER ==
[~2019-06-28] VITALS: Ht 162.6 cm; Wt 86.4 kg
[~2019-06-28 10:40] MED LIST changes: +PREN1TAB14
[2019-06-28 12:11] VITALS: BP 129/79
== END 2019-06-28 12:15 | disposition home or self-care (01) ==
LOC: M ED 10:40
DX: E86.0 Dehydration (principal); K64.8 Other hemorrhoids

== ENCOUNTER 2019-12-23 12:19 | Inpatient (IN) | payer OTHER ==
[2019-12-23] VITALS (10 sets, daily range): BP systolic 95–141; BP diastolic 49–64
[~2019-12-23] VITALS: Ht 160 cm; Wt 103.2 kg
[2019-12-23] MEDS ORDERED: LACTATED RINGER'S 1000 ML IV STA (12:35)
[2019-12-23] MEDS ORDERED: TUMS500C PO (12:42)
[2019-12-23] MEDS ORDERED: LR 1,000 ML IV ONE (13:30)
[2019-12-23 14:00] LABS: HEMATOCRIT 35.5 % (36.0-47.0); HEMOGLOBIN 11.7 g/dl (12.0-15.5); MEAN CORPUSCULAR HEMOGLOBIN 30.1 pg (27.0-33.0); MEAN CORPUSCULAR VOLUME 91.3 fl (80.0-96.0); PLATELET COUNT, AUTOMATED 261 10^3/uL (150-450); RED BLOOD COUNT 3.89 10^6/uL (4.00-5.40)
--- NOTE | 2019-12-23 14:27 | HPEPDOC ---
Obstetrical History & Physical General Date of Admission Dec 23, 2019 at 12:56 History of Present Illness Admission Note S: Gudelia is a 24yo at 40+4 weeks being admitted for a Category II FHT (late decelerations) and elective IOL. Her EDC is [id number] by LMP/1TUS. She presented to LND with c/o possible ROM, contractions and decreased movement. She denies vaginal bleeding. OB Hx: 07/2013 - 37+6wks FAVD, 7lbs 9oz (pushed for 4 hours); 02/2018 - SAB at 7wks, D&C complicated by Obesity (BMI 31.8), excessive weight gain of 43lbs and anemia. 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 Past Medical History Surgical History: Dilatation and Curettage, Other (Left Shoulder) Family History Significant Family History: No pertinent family hx Social History Marital Status: Single Family situation: Spouse/partner home Psychosocial History: No pertinent psych hx * Smoker: non-smoker Alcohol: Denies Drugs: denies Abuse Violence Screening Have you been hit/kicked/slapp: No Have you been sexually assault: No Imunizations Tdap status: current Influenza Status: current Allergies Coded Allergies: No Known Allergies (Unverified , 10/25/16) Medications Scheduled PRN Calcium Carbonate (Tums) 200 Mg Tab.chew, 2 TAB PO Q4HP PRN for HEARTBURN Miscellaneous Medications Vits96/Iron Fum/Folic ( Tablet) 1 Each Tablet Physical Examination Physical Examination GENERAL: Alert and oriented times three. ABDOMEN: Gravid and non-tender to touch. FETUS: Is vertex by sterile vaginal examination' HEART RATE: Regular rate. LUNGS: Observed nonlabored breathing. EXTREMITIES: No edema. Vital Signs/I&O O: VSS, afebrile, normotensive FHR 125, moderate variability, + accels, 3x late decelerations noted when pt initially arrive (repositioned and received LR bolus and no further decelerations noted) CTX by toco, present but irregular, pt feeling tightness and pain in back SSE: pooling noted (appears to be discharge) VE: 2/50/-3, amniotic sac palpated, membranes swept Ferning Negative Vital Signs Date Time Temp Pulse Resp B/P (MAP) Pulse Ox O2 Delivery O2 Flow Rate FiO2 12/23/19 12:37 98.3 96 18 116/55 (75) 98 Laboratory Data 24H LABS Laboratory Tests 2 12/23/19 13:00: Serology Scanned Report Hepatitis B Testing 12/23/19 13:31: CBC/BMP Pertinent Laboratoy Data Blood Type: A+ RBC Antibody Screen: Negative HIV: Negative Hepatitis B: Negative Rapid Plasma Reagin: Nonreactive Rubella: Immune Varicella: Immune Chlamydia/Gonorrhea: Negative Group B Streptococcus: Negative Quad Screen Test: Negative Cystic Fibrosis: Negative Glucose Tolerance Test: 150 (3hr GTT WNL) Anatomy Ultrasound Ultrasound Date: Jul 31, 2019 Placenta Location: Posterior Normal Anatomy: Yes Placenta Previa: No Vaginal Examination Presentation: Cephalic presentation Assessment/Plan Assessment Gudelia is a 24yo at 40+4 weeks being admitted for IOL d/t Category II FHT (late decelerations); tracing now reassuring and Category I after interventions. GBS Negative, Blood Type A Positive. Plan P: Admit to LND, consent for admission, induction, labor, and delivery, risks/benefits. PIV start, admission labs drawn CEFM x2; can transition to intermittent monitoring with Category I tracing Membranes swept Will monitor for 4 hours to see if pt progresses on her own after sweeping; otherwise plan to start IOL with 25mcg Cytotec PO and IV hydration Close monitoring of maternal/ status Anticipate Consult with OB as indicated KATIE ASHLEY CNM Dec 23, 2019 14:27
[2019-12-23] MEDS ORDERED: miSOPROStol 25 MCG 1/4 TAB (S0191) PO ONE (22:15)
--- NOTE | 2019-12-23 22:27 | IPNPDOC ---
Obstetrical Progress Note Date of Service Dec 23, 2019 Subjective S: Gudelia is a 24yo at 40+4wks who was admitted earlier today for Category II FHT with intent on IOL. She has no concerns at this time. She has had intermittent contractions, but they have spaced out and labor has not progressed on its own. Objective O: VSS, afebrile, normotensive FHR 135, moderate variability, + accels, no current decels there have been a few periods of few late decelerations noted while being monitored. These recovered spontaneously and no further interventions needed. CTX by TOCO: occassional VE: Unchanged from previous exam CRB placed at 2154 (80/80) Vital Signs Date Time Temp Pulse Resp B/P (MAP) Pulse Ox O2 Delivery O2 Flow Rate FiO2 12/23/19 21:26 80 18 108/54 (72) 12/23/19 18:09 97.9 12/23/19 12:37 98 Tocometer Frequency: irregular Sterile Vaginal Examination Postion/Presentation: Cephalic presentation Assessment and Plan Status: Reassuring Group B Streptococcus: Negative Anticipate: Vaginal Delivery Additional Comments A: 24yo at 40+4wks, not in labor, Category I FHT, reactive, and overall reassuring. CRB placed and pt tolerated well. P: Administer 1st dose of cytotec, 25mcg buccal Continue 50mcg Cytotec q4 hours (no more than 4 total doses of cytotec) Will start pitocin when CRB is out CEFM x2 for 1 hour after cytotec, then can be intermittent with Category I tracing Close monitoring of maternal/ status Anticipate Consult with OB as indicated KATIE ASHLEY CNM Dec 23, 2019 22:27
[2019-12-23] MEDS ORDERED: BUTORPHANOL 2 MG/ML INJ (J0595) IV ONE (23:00)
[2019-12-23] MEDS ORDERED: PROMETHAZINE INJ 25 MG/ML VIAL (J2550) IV ONE (23:00)
[2019-12-24] VITALS (43 sets, daily range): BP systolic 85–140; BP diastolic 43–67
[2019-12-24] MEDS ORDERED: miSOPROStol 50 MCG 1/2 TAB (S0191) PO SCH (02:00)
[2019-12-24] MEDS ORDERED: FENTANYL 2MCG/ML ROPIVACAINE 0.2% IN 0.9% NACL 100ML IVBAG As Ordered ONE (03:37)
--- NOTE | 2019-12-24 04:40 | IPNPDOC ---
Obstetrical Progress Note Date of Service Dec 24, 2019 Subjective Labor Progress Note S: Gudelia is a 24yo , now at 40+5wks, who was admitted earlier on 23DEC2019 for Category II FHT with intent on IOL. She is now s/p CRB and 1st dose of cytotec (25mcg buccal); CRB came out spontaneously at midnight. She is now elizabeth regularly and requesting an epidural. Objective O: VSS, afebrile, normotensive FHR 140, moderate variability, + accels; there are periods of minimal variability and recurrent late and variable decelerations. Pt has received and LR bolus and has been repositioned frequently per pt report. Upon me walking into the room at 0412 for an assessment, immediately after a deceleration, pt was lying flat on her back. After my exam, she was immediately repositioned to right lateral. At time of this note, pt is sitting up for her epidural. VE: 7/90/-2, intact membranes Assessment Heart Rate Tracing: Category II Sterile Vaginal Examination Postion/Presentation: Cephalic presentation Assessment and Plan Anticipate: Vaginal Delivery Additional Comments A: 24yo at 40+5wks, active labor, Category II FHT with ongoing interventions. P: Epidural now CEFM x2 Close monitoring of maternal/ status Continue interventions for Category II FHT Plan to AROM and place FSE Plan to start pitocin Will update OB with labor progress and tracing Anticipate KATIE MATTHEWS CNM Dec 24, 2019 04:40
[2019-12-24] MEDS: ePHEDrine SULFATE 25 MG/5 ML(5MG/ML) SYRINGE IV PRN ×2 (05:03→05:04)
[2019-12-24] MEDS ORDERED: diphenhydrAMINE 50MG/ML VIAL (J1200) IV PRN (05:15)
[2019-12-24] MEDS ORDERED: LACTATED RINGER'S 1000 ML IV PRN (05:15)
[2019-12-24] MEDS ORDERED: EPIDURAL COMMENT XX SCH (05:15)
[2019-12-24] MEDS ORDERED: ONDANSETRON 4MG/2ML VIAL IV PRN (05:15)
[2019-12-24] MEDS ORDERED: NALOXONE INJ 0.4MG/1ML VIAL (J2310 PER 1MG) IV PRN (05:15)
[2019-12-24] MEDS ORDERED: EPIDURAL/PCA KEYS XX PRN (05:15)
[2019-12-24] MEDS ORDERED: FENTANYL/ROPIVACAINE/NACL BAG 100 ML EPIDURAL SCH (05:15)
[2019-12-24] MEDS ORDERED: REFRIGERATOR IV KEYS XX PRN (05:15)
[2019-12-24] MEDS ORDERED: OXYTOCIN 30 UNITS IN 0.9% NaCl 500ML IV BAG (J2590) As Ordered ONE (07:00)
[2019-12-24 07:33] LABS: CORD GAS ABE V -3.1; CORD GAS O2 SAT A 80.4 %; CORD GAS O2 SAT V 67.6 %; CORD GAS PCO2 A 71.4 mmHg; CORD GAS PH A 7.126 UNITS; CORD GAS PH V 7.327 UNITS; CORD GAS SBC A 17.8 MEQ/L; CORD GAS SBC V 21.1 MEQ/L; CORD GAS TCO2 A 25.2 MEQ/L; CORD GAS TCO2 V 24.4 MEQ/L
[2019-12-24] MEDS ORDERED: DOCUSATE SODIUM 100 MG CAP PO PRN (07:45)
[2019-12-24] MEDS ORDERED: ACETAMINOPHEN TAB 650MG DOSE (2X325MG) PO PRN (07:45)
[2019-12-24] MEDS ORDERED: DIBUCAINE 1% OINTMENT 30GM TOP PRN (07:45)
[2019-12-24] MEDS ORDERED: IBUPROFEN 600MG TAB PO PRN (07:45)
--- NOTE | 2019-12-24 07:59 | DNPDOC ---
[facility] Delivery Note Delivery Note DATE OF DELIVERY: December 24, 2019 at 0707 PREDELIVERY DIAGNOSIS: 40+5 weeks gestation POST DELIVERY DIAGNOSIS: Delivered. PROCEDURE: with 15 second shoulder dystocia. HARDBOARD SUPERVISOR: TAMMY Ashley ANESTHESIA: Epidural ESTIMATED BLOOD LOSS: 200mL. FINDINGS: 9 pound 2 ounce (4150g) male , Score 7/9. DELIVERY SUMMARY: Gudelia is a 24yo at 40+5wks gestation who continued to progress spontaneously after 1 dose of cytotec and CRB. She had a strong urge to push and after only a few practice pushes, I was called to the room for imminent delivery. head delivered direct OA and restituted to LOT. With the next push and with gentle downward traction, there was no site of anterior shoulder and no further descent; pt repositioned to supine and attempted to push with no descent; shoulder dystocia called, pt repositioned to Vandana, and with next push Right anterior shoulder delivered, then remainder of body delivered to maternal abdomen where he was dried and stimulated; meconium stained fluid present with delivery (previously clear). He had a good cry and moving all extremities. At request of baby nurse to assess at warmer, cord clamped x2 and cut by FOB. Cord gases collected d/t persistent Category II FHT. Placenta delivered spontaneously and appeared intact, 3VC. Fundus firm, EBL 200. Upon inspection of vagina, perineum, and cervix, small perineal abrasions noted and appeared hemostatic; no repair required. Infant return to mom and started ; family bonding well and anticipate uncomplicated PP course. 12/24/19 07:24: Cord Arterial Blood pH 7.126, Cord Arterial Blood PCO2 71.4, Cord Arterial Blood PO2 48.0, Cord Arterial Blood HCO3 23.0, Cord Arterial Blood Total CO2 25.2, Cord Arterial Blood Base Excess -8.0, Cord Arterial Base Excess (Standard 17.8, Cord Arterial Bld Oxygen Saturation 80.4, Cord Venous Blood pH 7.327, Cord Venous Blood PCO2 45.0, Cord Venous Blood PO2 31.0, Cord Venous Blood HCO3 23.0, Cord Venous Blood Total CO2 24.4, Cord Venous Base Excess (Actual) -3.1, Cord Venous Base Excess (Standard) 21.1, Cord Venous Blood Oxygen Saturation 67.6 KATIE ASHLEY. [facility] Dec 24, 2019 07:59
[2019-12-24] MEDS ORDERED: OXYTOCIN DRIP 30 UNITS in IV 1 EA IV SCH (08:00)
[2019-12-24] MEDS: PRENATAL VITAMINS CHEWABLE TABLET PO SCH (09:54)
[2019-12-24] MEDS: IBUPROFEN 800 MG TAB PO PRN (12:38)
[2019-12-24] MEDS: ACETAMINOPHEN 500 MG TAB PO PRN (17:56)
[2019-12-25] MEDS: IBUPROFEN 800 MG TAB PO PRN (01:32)
[2019-12-25] MEDS: ACETAMINOPHEN 500 MG TAB PO PRN (05:22)
[2019-12-25 05:28] VITALS: BP 112/59
--- NOTE | 2019-12-25 07:25 | OBDS ---
[facility] Obstetrical Discharge Sum. Obstetrical Discharge Summary Date: Dec 25, 2019 : 3 Term: 2 Pre-term: 0 Abortions: 1 Livin VDRL: Non-Reactive Rh: Positive Rubella: Immune Sex: Male Infant Weight: grams (4150) Anesthesia: Regional Anesthesia A/P, Post Course List any complications Admission diagnosis: gravid @ 40+4wks non reassuring heart tracing Discharge diagnosis: Condition at Discharge: stable Discharge Instructions: Home Activity: as tolerated, pelvic rest Diet: regular Medications: filled at [facility] Follow-up: 6-8wks Patient admitted at 40+4wks gestation for induction of labor secondary to non reassuring heart tracing. She progressed to have a spontaneous vaginal delivery. course uncomplicated and patient discharged home on day #1. BRIANNA KLEIN DO Dec 25, 2019 07:25
[2019-12-25] MEDS: PRENATAL VITAMINS CHEWABLE TABLET PO SCH (08:13)
== END 2019-12-25 13:30 | disposition home or self-care (01) | DRG 807 ==
LOC: M LDO 12:19 → M LDI 12:56 → M OBS 12-24 09:15
PROVIDERS: ADMIT Registered Nurse Maternal Newborn; ATTEND Registered Nurse Maternal Newborn
PROC: 3E0P7GC Introduction of Other Therapeutic Substance into Female Reproductive, Via Natural or Artificial Opening (ICD-10-PCS; 2019-12-23)
PROC: 10E0XZZ Delivery of Products of Conception, External Approach (ICD-10-PCS; principal; 2019-12-24)
DX: O76 Abnormality in fetal heart rate and rhythm complicating labor and delivery (principal); Z37.0 Single live birth; O48.0 Post-term pregnancy; Z3A.40 40 weeks gestation of pregnancy; O99.214 Obesity complicating childbirth; E66.9 Obesity, unspecified; O99.02 Anemia complicating childbirth; D64.9 Anemia, unspecified; O66.0 Obstructed labor due to shoulder dystocia; O77.0 Labor and delivery complicated by meconium in amniotic fluid

== ENCOUNTER 2020-04-29 13:17 | Emergency (ER) | payer OTHER ==
[~2020-04-29] VITALS: Ht 162.6 cm; Wt 86.4 kg
[~2020-04-29 13:17] MED LIST changes: +TUMS500C PO
[2020-04-29] MEDS ORDERED: FERR325T18 (13:26)
[2020-04-29] MEDS ORDERED: IBUP80TA (13:26)
[2020-04-29] MEDS ORDERED: PARA1IUD (13:26)
[2020-04-29 15:20] LABS: BASO % 0.5 % (0.0-1.0); EOS # 0.1 10^3/uL (0.0-0.5); EOS % 2.2 % (0.0-3.0); HEMATOCRIT 39.9 % (36.0-47.0); HEMOGLOBIN 12.8 g/dl (12.0-15.5); LYMPH # 1.5 10^3/uL (1.5-5.0); LYMPH % 26.2 % (24.0-44.0); MEAN CORPUSCULAR HEMOGLOBIN 29.4 pg (27.0-33.0); MEAN CORPUSCULAR HGB CONC 32.1 g/dl (32.0-36.5); MEAN CORPUSCULAR VOLUME 91.7 fl (80.0-96.0); MONO # 0.6 10^3/uL (0.0-0.8); MONO % 9.6 % (0.0-5.0); NEUTROPHILS # 3.6 10^3/uL (1.5-8.5); NEUTROPHILS % 61.3 % (36.0-66.0); PLATELET COUNT, AUTOMATED 342 10^3/uL (150-450); RED BLOOD COUNT 4.35 10^6/uL (4.00-5.40); WHITE BLOOD COUNT 5.8 10^3/uL (4.0-10.0)
[2020-04-29 15:40] LABS: ERYTHROCYTE SEDIMENTATION RATE 6 mm/hr (0-20)
[2020-04-29 15:44] LABS: ALBUMIN 4.1 GM/DL (3.2-5.2); ALT/SGPT 36 U/L (12-78); BILIRUBIN,DIRECT < 0.1 MG/DL (0.0-0.2); BILIRUBIN,TOTAL 0.3 MG/DL (0.2-1.0); BLOOD UREA NITROGEN 15 MG/DL (7-18); C REACTIVE PROTEIN QUANTITATIV 0.49 MG/DL (0.00-0.30); CALCIUM LEVEL 9.7 MG/DL (8.5-10.1); CARBON DIOXIDE LEVEL 29 MEQ/L (21-32); CHLORIDE LEVEL 106 MEQ/L (98-107); CREATININE FOR GFR 0.69 MG/DL (0.55-1.30); GLOMERULAR FILTRATION RATE > 60.0 (>60); GLUCOSE, FASTING 93 MG/DL (70-100); POTASSIUM SERUM 4.5 MEQ/L (3.5-5.1); SODIUM LEVEL 138 MEQ/L (136-145); TOTAL PROTEIN 7.3 GM/DL (6.4-8.2)
[2020-04-29] MEDS ORDERED: KETOROLAC 60MG 2ML VIAL IM ONE (15:45)
--- NOTE | 2020-04-29 16:16 | REP ---
INDICATION: low back pain, one episode urine incontinence, numb L. COMPARISON: None. TECHNIQUE: Helical scanning is acquired 4 mm axial images were reformatted and viewed at bone and soft tissue window settings. Coronal and sagittal MPR images are generated. FINDINGS: Lumbar vertebral body heights are preserved. There is a minimal levoconvex curve. Alignment is otherwise normal. There is disc space narrowing at L4-5 mild in degree. Disc spaces are otherwise preserved. There is no evidence of spondylolysis or spondylolisthesis. No extra vertebral abnormality is observed. Axial images at the L4-5 level demonstrated broad-based focal disc protrusion compressing the ventral margin of the thecal sac. No neural foraminal encroachment is appreciated. At L5-S1, there is a larger left posterior focal disc protrusion compressing the left ventral margin of the thecal sac and the left S1 root. This is best seen on axial images. no bony neural foraminal encroachment is appreciated. There is some foraminal disc bulging bilaterally. No other disc protrusion. IMPRESSION: Moderate to large left paracentral focal disc protrusion at L5-S1 compressing the left S1 root and the ventral margin of the thecal sac. There is also a central broad-based focal disc protrusion at L4-5. <Electronically signed by Jun Pace > 04/29/20 [id number]
[2020-04-29 17:27] VITALS: BP 153/79
--- NOTE | 2020-04-30 16:26 | ED PDOC ---
Post-Departure Follow-Up yousif ernst and dr duval faxed formal report of ct ls spine for fu Alf Alvarado MD Apr 30, 2020 16:26
== END 2020-04-29 17:37 | disposition home or self-care (01) ==
LOC: M ED 13:17
DX: M51.16 Intervertebral disc disorders with radiculopathy, lumbar region (principal); M51.17 Intervertebral disc disorders with radiculopathy, lumbosacral region
CPT/HCPCS: 72131; 80048; 80076; 84702; 85025; 85652; 86140; 96372; 99283; J1885

== ENCOUNTER 2020-05-02 14:44 | Day surgery (SDC) | payer OTHER ==
[~2020-05-02] VITALS: Ht 162.6 cm; Wt 84.8 kg
[~2020-05-02 14:44] MED LIST changes: +CelecoXIB 400 MG CAP PO ONE; +FERR325T18; +IBUP80TA; +LR 1,000 ML IV SCH; +PARA1IUD; +ceFAZolin SOD 2 GM in IV 1 EA IV ONE
[2020-05-02] MEDS ORDERED: MIDAZOLAM INJ 2MG/2ML VIAL (J2250 PER 1MG) As Ordered ONE (16:49)
[2020-05-02] MEDS ORDERED: fentaNYL 250 MCG/5 ML INJECTION (J3010) As Ordered ONE (16:49)
[2020-05-02] MEDS ORDERED: propofoL 200 MG/20 ML VIAL As Ordered ONE (16:50)
[2020-05-02] MEDS ORDERED: dexameTHASONE 4 MG/ML 1ML VIAL (J1100 PER 1MG) As Ordered ONE (16:50)
[2020-05-02] MEDS ORDERED: SUGAMMADEX SODIUM 500 MG/5 ML VIAL (BRIDION) As Ordered ONE (16:50)
[2020-05-02] MEDS ORDERED: THROMBIN SOLN 20,000 UNITS KIT As Ordered ONE (16:50)
[2020-05-02] MEDS ORDERED: ONDANSETRON 4MG/2ML VIAL As Ordered ONE (16:50)
[2020-05-02] MEDS ORDERED: LIDOCAINE 2% 100MG/5ML SDV (FOR ANES.) As Ordered ONE (16:50)
[2020-05-02] MEDS ORDERED: BUPIVACAINE LIPOSOME/PF 1.3% 20ML VIAL (13.3MG/ML)(EXPAREL)(C9290 PER1MG) As Ordered ONE (16:51)
[2020-05-02] MEDS ORDERED: BUPIVACAINE HCL 0.25% 30ML VIAL As Ordered ONE (16:51)
[2020-05-02] MEDS ORDERED: BUPIVACAINE/EPIN 0.5% 30 ML VIAL As Ordered ONE (16:51)
[2020-05-02] MEDS ORDERED: EPINEPHrine INJ 1 MG/ML 1ML AMP As Ordered ONE (16:51)
[2020-05-02] MEDS ORDERED: TRANEXAMIC ACID 100 MG/ML 10ML VIAL As Ordered ONE (16:51)
[2020-05-02] MEDS ORDERED: BACITRACIN PWD 50,000 UNITS VIAL As Ordered ONE (16:51)
[2020-05-02] MEDS ORDERED: ROCURONIUM BROMIDE 50 MG/5 ML VIAL As Ordered ONE (16:54)
[2020-05-02] MEDS ORDERED: ACETAMINOPHEN 1000MG 100ML IV BTL (OFIRMEV) (J0131 PER 10MG) As Ordered ONE (18:12)
[2020-05-02] MEDS ORDERED: MEPERIDINE INJ 25 MG/ML VIAL (J2175) As Ordered ONE (19:31)
[2020-05-02] MEDS: MEPERIDINE INJ 25 MG/ML VIAL (J2175) IV PRN ×2 (19:33→19:47)
[2020-05-02] MEDS ORDERED: ONDANSETRON 4MG/2ML VIAL IV PRN (19:45)
[2020-05-02] MEDS ORDERED: LR 1,000 ML IV SCH ×2 (19:45→20:00)
[2020-05-02] MEDS ORDERED: METOCLOPRAMIDE INJ 10MG/2ML VIAL (J2765 PER 1) IV PRN (19:45)
[2020-05-02] MEDS ORDERED: oxyCODONE 5MG TAB PO PRN (19:45)
[2020-05-02] MEDS ORDERED: fentaNYL 100 MCG/2 ML INJECTION (J3010) IV PRN (19:45)
[2020-05-02] MEDS ORDERED: HYDROMORPHONE HCL 0.5 MG/ 0.5 ML SYRINGE (J1170 PER 1) IV PRN (20:00)
[2020-05-02] MEDS ORDERED: PERCOCET 5MG/325MG TAB PO PRN (20:00)
--- NOTE | 2020-05-02 20:35 | REP ---
INDICATION: LEFT MICRODISCECTOMY L5-S1 COMPARISON: None. TECHNIQUE: Portable cross-table view of the lumbar spine. FINDINGS: Probe via posterior approach at the L5-S1 level. IMPRESSION: Probe at the L5-S1 level. <Electronically signed by Mychal Grubbs > 05/02/20 [id number]
[2020-05-02 21:30] VITALS: BP 105/60
[2020-05-02 22:03] VITALS: BP 105/59
[2020-05-02 22:38] VITALS: BP 104/56
[2020-05-02 23:53] VITALS: BP 102/52
[2020-05-03] MEDS: PERCOCET 5MG/325MG TAB PO PRN ×2 (03:39→09:27)
[2020-05-03] MEDS: ceFAZolin SOD 2 GM in IV 1 EA IV SCH ×3 (05:14)
[2020-05-03] MEDS ORDERED: PERC5TAB12 PO (06:27)
[2020-05-03] MEDS ORDERED: ONDANSETRON 4MG/2ML VIAL IV PRN (06:30)
[2020-05-03 06:39] VITALS: BP 100/53
[2020-05-03] MEDS ORDERED: METAMUCIL (PSYLLIUM) PACKET PO SCH (09:00)
[2020-05-03] MEDS ORDERED: CelecoXIB (CeleBREX) 100 MG CAP PO ONE (09:00)
--- NOTE | 2020-05-03 14:12 | RO ---
DATE OF OPERATION: 05/02/2020 PREOPERATIVE DIAGNOSIS: Lumbar spinal stenosis secondary to large disk extrusion at L5-S1. POSTOPERATIVE DIAGNOSIS: Lumbar spinal stenosis secondary to large disk extrusion at L5-S1. PROCEDURE PERFORMED: Microdiskectomy L5-S1 for decompression of the thecal sac and S1 nerve root. INTRAOPERATIVE FINDINGS: Large axillary disk extrusion. SURGEON: Fredrick Willson MD NEUROLOGY STROKE PHYSICIAN: MARISELA Samano ANESTHESIA: General. ESTIMATED BLOOD LOSS: Less than 30, replaced with Crystalloid. COMPLICATIONS: None. INDICATIONS: Intractable discomfort down left lower extremity. CT scan reflects a very large disk herniation L5-S1 left paracentral. The patient has motor and sensory and reflex deficit and S1 distribution. Consent reviewed in detail including lázaro discussion of the pathology involved, procedure proposed, alternatives including doing nothing, risks including but not limited to pain, failure, infection, nerve injury, incomplete relief of symptoms and other issues, patient agrees to proceed. DESCRIPTION OF OPERATIVE COURSE: Identified in the holding area. Site and side verified, brought to the operating room, anesthesia was administered, she was positioned for exposure. We positioned her on the Mc frame for exposure of lumbar spine. Axillary rolls were utilized, these were slightly flexed. Once I and the book publisher were comfortable with the patients positioning, she was then sterilely prepped and draped in usual fashion for exposure of the lumbar spine. Mr. Vivas assisted with positioning. Incision outlined with marking pen, infiltrated with 0.25% Marcaine with Epinephrine based on palpation of landmarks. Incision was made with 10-blade knife, developed down through skin and subcuticular tissues to the posterior lumbar fascia. Posterior lumbar fascia was reflected off the spinous process of 5 and then dissection continued along the L5 lamina. I used high speed drill to drill a divot in the posterior lamina of L5, placed Dipesh Sanchez in the divot and we obtained a cross-table lateral x-ray to verify our level. Once this was accomplished we further exposed the L5-S1 level on the left side, removed posterior lamina 5 using Leksells. I utilized high speed bur to further remove lamina 5 up to the bare area 5 so we were undercutting the spinous process of 5 and superior S1. Care was taken to protect the facet and minimal facet medially was compromised. Curettes were utilized to elevate ligamentum flavum. This disk herniation seemed to be somewhat inferiorly migrated in the axillary position and was quite large and directly deep to the ligamentum flavum, severely compressing the S1 nerve root, pushing it laterally and thecal sac medially. Using Landon Daniel probe I was able to break the posterior longitudinal ligament and some disk material extruded, I removed disk material using Cooper pituitaries piecemeal fashion. There was a large volume of disk material removed. I also removed some friable disk material from the disk space at L5-S1 on the left. I was able to sweep the S1 nerve root at that point medially to remove some additional disk material. Bipolar cautery was utilized for hemostasis. Neural foramen was probed and found to be patent. Irrigation was accomplished; Mr. Gucci Vivas had assisted in exposure by securing and placing the suction Man apparatus. Retractors were removed. Posterior lumbar fascia reapproximated with interrupted stitch, deep dermis with interrupted stitch, Prineo dressing applied. The patient log rolled to hospital bed, extubated and moved to recovery room in good condition. For further details please refer to medical record. CLAUDIA
== END 2020-05-03 10:45 | disposition home or self-care (01) ==
LOC: M SDC 14:44 → M MS5PR 20:40 → M SDC 05-03 10:45
PROVIDERS: ATTEND Orthopaedic Surgery
DX: M48.07 Spinal stenosis, lumbosacral region (principal); M51.27 Other intervertebral disc displacement, lumbosacral region
CPT/HCPCS: 36415; 63030; 72110; 86850; 86900; 86901; 88304; 96374; 96375; 96376; J0131; J0171; J0690; J1100; J2175; J2250; J2405; J3010; U0002

== ENCOUNTER 2020-05-05 16:53 | Emergency (ER) | payer OTHER ==
[~2020-05-05] VITALS: Ht 162.6 cm; Wt 88.0 kg
[~2020-05-05 16:53] MED LIST changes: -CelecoXIB 400 MG CAP PO ONE; -LR 1,000 ML IV SCH; +PERC5TAB12 PO; -ceFAZolin SOD 2 GM in IV 1 EA IV ONE
[2020-05-05 17:46] LABS: BASO % 0.7 % (0.0-1.0); EOS # 0.1 10^3/uL (0.0-0.5); EOS % 1.6 % (0.0-3.0); HEMATOCRIT 36.9 % (36.0-47.0); HEMOGLOBIN 11.5 g/dl (12.0-15.5); LYMPH # 0.6 10^3/uL (1.5-5.0); LYMPH % 13.4 % (24.0-44.0); MEAN CORPUSCULAR HEMOGLOBIN 28.6 pg (27.0-33.0); MEAN CORPUSCULAR HGB CONC 31.2 g/dl (32.0-36.5); MEAN CORPUSCULAR VOLUME 91.8 fl (80.0-96.0); MONO # 0.6 10^3/uL (0.0-0.8); MONO % 12.5 % (0.0-5.0); NEUTROPHILS # 3.2 10^3/uL (1.5-8.5); NEUTROPHILS % 71.1 % (36.0-66.0); PLATELET COUNT, AUTOMATED 315 10^3/uL (150-450); RED BLOOD COUNT 4.02 10^6/uL (4.00-5.40); WHITE BLOOD COUNT 4.5 10^3/uL (4.0-10.0)
[2020-05-05 18:15] LABS: ALBUMIN 3.8 GM/DL (3.2-5.2); ALT/SGPT 65 U/L (12-78); BILIRUBIN,DIRECT 0.1 MG/DL (0.0-0.2); BILIRUBIN,TOTAL 0.3 MG/DL (0.2-1.0); BLOOD UREA NITROGEN 14 MG/DL (7-18); CALCIUM LEVEL 9.2 MG/DL (8.5-10.1); CARBON DIOXIDE LEVEL 26 MEQ/L (21-32); CHLORIDE LEVEL 105 MEQ/L (98-107); CREATININE FOR GFR 0.66 MG/DL (0.55-1.30); GLOMERULAR FILTRATION RATE > 60.0 (>60); GLUCOSE, FASTING 94 MG/DL (70-100); POTASSIUM SERUM 3.7 MEQ/L (3.5-5.1); SODIUM LEVEL 138 MEQ/L (136-145)
[2020-05-05 18:21] LABS: ERYTHROCYTE SEDIMENTATION RATE 14 mm/hr (0-20)
[2020-05-05 22:43] VITALS: BP 126/67
--- NOTE | 2020-05-05 22:48 | REPVR ---
PROCEDURE INFORMATION: Exam: MR Lumbar Spine Without and With Contrast. Exam date and time: 05/05/2020 10:21 PM Age: 25 years old Clinical indication: Low back pain; Prior surgery; Surgery date: Post-operative (0-2 days); Surgery type: Lower back discectomy; Patient HX: R/O abscess. Lower back pain with fever. Post op surgery few days ago. ; Additional info: R/O abscess post op TECHNIQUE: Imaging protocol: Multiplanar magnetic resonance images of the lumbar spine without and with intravenous contrast. Contrast material: PROHANCE; Contrast volume: 17 ml; Contrast route: INTRAVENOUS (IV); COMPARISON: CT Spine, lumbar w/o contrast 04/29/2020 3:34 PM FINDINGS: Vertebral body height and AP alignment is preserved. There is disc desiccation at L4-L5 and L5-S1 with moderate narrowing at L5-S1. Degenerative endplate signal at L5-S1. No evidence of discitis/osteomyelitis. Conus medullaris terminates at L1. No epidural fluid collection. No pathologic intrathecal enhancement. Fluid involving the posterior midline subcutaneous fat planes measures 1.7 cm AP 1.4 cm transverse by 3 cm cc. Fluid contains a small amount of gas. L1-L2: No central or foraminal stenosis. L2-L3: No central or foraminal stenosis. L3-L4: No central or foraminal stenosis. L4-L5: [id number]-nj-pzrdodyk disc bulge with posterior annular tear. There is mild central canal stenosis without significant foraminal stenosis. L5-S1: Prior left-sided laminectomy. Small amount of fluid at the laminectomy bed, likely postoperative. There is moderate disc bulge with overlying scar/granulation tissue. No significant central canal stenosis. [id number]-os-egmjjeko right and moderate left foraminal stenosis. Enhancing scar/granulation tissue extends to and abuts the left S1 nerve root. IMPRESSION: 1. Fluid collection involving the posterior midline subcutaneous fat planes and small fluid collection at the L5-S1 laminectomy bed. Fluid is most likely on a postoperative basis, superimposed infection cannot be excluded. 2. No epidural abscess. 3. Degenerative disc disease at L4-L5 and L5-S1 as above. Electronically signed by: Zia Reyes On 05/05/2020 22:47:44 PM
== END 2020-05-05 23:09 | disposition home or self-care (01) ==
LOC: M ED 16:53
DX: R50.82 Postprocedural fever (principal); Z97.5 Presence of (intrauterine) contraceptive device

== ENCOUNTER 2020-08-07 08:45 | Emergency (ER) | payer OTHER ==
[~2020-08-07] VITALS: Ht 165.1 cm; Wt 87.9 kg
--- OUTSIDE RECORDS SUMMARY | 2020-08-07 08:53 | CCD | Continuity of Care Document ---
Author Author Gudelia DALE P.A. Organization Unknown Address [address] [place] [address] Phone [phone] Care Team Providers Care Count Room Clerk Name Role Phone Kelly Portillo AUTM [phone] Problems Description No Information Available Social History Type Date Description Comments Sex Unknown Allergies, Adverse Reactions, Alerts Description No Information Available Medications Active Medications SIG Qnty Indications Ordering Provide r Date Gabapentin 300mg Capsules 1 by mouth twice a day 90caps M51.17 Fredrick Willson MD 05/01/2020 Hydrocodone-Acetaminophen 5-325mg Tablets 1-2 tabs po q4-6h prn / post surgical pain 18tabs Fredrick Willson MD 05/01/2020 Immunizations Description No Information Available Vital Signs Date Vital Result Comment 05/01/2020 2:23pm Body Temperature 96.9 F Height 64.5 inches 5'4.50" Weight 186.50 lb BMI (Body Mass Index) 31.5 kg/m2 Results Test Acquired Date Facility Test Result H/L Range Note Laboratory test finding 05/02/2020 [facility] [address] [place] [address] [phone] - Pathology Request For Service (SEE NOTE) 1 Type & Screen -Incl Blood Type,Krunal,AB SC 05/02/2020 [facility] [address] [place] [phone] - Blood Type A POSITIVE Normal AB Screen (Indirect Ronak)Vis NEGATIVE Normal Laboratory test finding 05/02/2020 [facility] [address] [place] [address] [phone] - Sars Covid-19 Amplification NEGATIVE Normal Negative 2 1 FINAL DIAGNOSIS Intervertebral disc L5-S1: Hyaline and fibrocartilage with myxoid/degenerative changes. 05/06/2020 - 1102 CLINICAL DIAGNOSIS Herniated or ruptured disc 05/03/2020 - 1249 GROSS DIAGNOSIS Received in formalin labeled "disc and tissue designated L5-S1" is a 6 x 2 x 1.5 cm. aggregate of white pale lofton fibrillar soft tissue and minute bone fragments. Baggage [place] in one. - 05/03/2020 - 0 Signed Edinson Lopez MD 05/06/2020 1309 2 A false negative result may occur if a specimen is improperly collected, transported or handled. False negative results may also occur if inadequate numbers of organisms are present in the specimen. As with any molecular test, mutations within the target regions of [employer] SARS-CoV-2 could affect primer and/or probe binding resulting in failure to detect the presence of virus. This test cannot rule out diseases caused by other bacterial or viral pathogens. DISCLAIMER: Testing was performed using the [facility] SARS-CoV-2 test. This test was developed and its performance characteristics determined by [facility]. This test has not been FDA cleared or approved. This test has been authorized by FDA under an Emergency Use Authorization (EUA). This test is only authorized for the duration of time the declaration that circumstances exist justifying the authorization of the emergency use of in vitro diagnostic tests for detection of SARS-CoV-2 virus and/or diagnosis of COVID-19 infection under section 564(b)(1) of the Act, 21 U.S.C. 360bbb-3(b)(1), unless the authorization is terminated or revoked sooner. Procedures Date Code Description Status 05/02/2020 18268 Laminectomy One Interspace, Lumb ar Completed 05/02/2020 26945 Laminectomy One Interspace, Lumb ar Completed 05/01/2020 31818 X-Ray Spine Lumbosacral Complete Inc Bending Views Min Of 6 Completed Medical Devices Description No Information Available Encounters Type Date Location Provider Dx Diagnosis Office Visit 07/11/2020 8:30a Marcella Dale, P.A. Z47.89 Encounter for other orthopedic aftercare Office Visit 05/15/2020 1:30p Marcella Willson MD Z47.89 Encounter for other orthopedic aftercare Office Visit 05/01/2020 2:00p [place] Fredrick Willson MD M51.17 Intvrt disc disorders w radiculopathy, lumbosacral region M48.062 Spinal stenosis, lumbar mei on with neurogenic claudication Assessments Date Code Description Provider 07/11/2020 Z47.89 Encounter for other orthopedic a ftercare Jameel Dale, PJcA. 05/15/2020 Z47.89 Encounter for other orthopedic a ftercare Fredrick Willson MD 05/02/2020 M51.17 Intervertebral disc disorders with radiculopathy, lumbosacral region Isidra Vivas PA-C 05/02/2020 M51.17 Intervertebral disc disorders with radiculopathy, lumbosacral region Fredrick Willson MD 05/02/2020 M48.062 Spinal stenosis, lumbar region w ith neurogenic claudication Isidra Vivas PA-C 05/02/2020 M48.062 Spinal stenosis, lumbar region w ith neurogenic claudication Fredrick Willson MD 05/01/2020 M51.17 Intervertebral disc disorders with radiculopathy, lumbosacral region Fredrick Willson MD 05/01/2020 M48.062 Spinal stenosis, lumbar region w ith neurogenic claudication Fredrick Willson MD Plan of Treatment 07/11/2020 - Jameel Dale, P.A.* Z47.89 Encounter for other orthopedic aftercare* Follow up:* prn Functional Status Description No Information Available Mental Status Description No Information Available Referrals Refer to Dr Reason for Referral Status Appt Date Fredrick Willson MD SURGERY PER [employer] APPROVAL FOR L5/S1 SURGERY (90144) TO SURGERY NT Created [address] [place] [address], [place] [address] [phone] Fredrick Willson MD OFFICE VISITS PER [employer] DANIEL ROVAL FOR 1 EVAL AND 3 FOLLOW UP'S ON SPINE (LEFT SIDE SCIATICA TO CHART NT Created [address] [facility], [facility] [address] [place] [address] [phone]
--- OUTSIDE RECORDS SUMMARY | 2020-08-07 08:53 | CCD | Continuity of Care Document ---
Author Author Gudelia WALKER MD Organization Unknown Address [address] [address] Phone [phone] Care Team Providers Care Area Operations Director Name Role Phone Kelly Portillo AUTM [phone] Problems Description No Information Available Social History Type Date Description Comments Sex Unknown Allergies, Adverse Reactions, Alerts Description No Information Available Medications Active Medications SIG Qnty Indications Ordering Provide r Date Gabapentin 300mg Capsules 1 by mouth twice a day 90caps M51.17 Fredrick Walker MD 05/01/2020 Hydrocodone-Acetaminophen 5-325mg Tablets 1-2 tabs po q4-6h prn / post surgical pain 18tabs Fredrick Walker MD 05/01/2020 Immunizations Description No Information Available Vital Signs Date Vital Result Comment 05/01/2020 2:23pm Body Temperature 96.9 F Height 64.5 inches 5'4.50" Weight 186.50 lb BMI (Body Mass Index) 31.5 kg/m2 Results Test Acquired Date Facility Test Result H/L Range Note Laboratory test finding 05/02/2020 [facility] [address] [place] [phone] - Pathology Request For Service (SEE NOTE) 1 Type & Screen -Incl Blood Type,Krunal,AB SC 05/02/2020 [facility] [address] [place] [phone] [phone] - Blood Type A POSITIVE Normal AB Screen (Indirect Ronak)Vis NEGATIVE Normal Laboratory test finding 05/02/2020 [facility] [address] [place] [address] [phone] - Sars Covid-19 Amplification NEGATIVE Normal [...] fibrillar soft tissue and minute bone fragments. Gluing Machine Operator Automatic in one. - 05/03/2020 - 1249 Signed Edinson Lopez MD 05/06/2020 1309 2 [...] pathogens. DISCLAIMER: Testing was performed using the [facility] SARS-CoV-2 test. This test was developed and its performance characteristics determined by [facility]. This test has not been FDA cleared [...] sooner. Procedures Date Code Description Status 05/02/2020 54964 Laminectomy One Interspace, Lumb ar Completed 05/02/2020 39980 Laminectomy One Interspace, Lumb ar Completed 05/01/2020 58708 X-Ray Spine Lumbosacral Complete Inc Bending Views Min Of 6 Completed Medical Devices Description No Information Available Encounters Type Date Location Provider Dx Diagnosis Office Visit 05/15/2020 1:30p [place] Fredrick Walker MD Z47.89 Encounter for other orthopedic aftercare Office Visit 05/01/2020 2:00p [place] MD M51.17 Intvrt disc disorders w radiculopathy, lumbosacral region M48.062 Spinal stenosis, lumbar mei on with neurogenic claudication Assessments Date Code Description Provider 05/15/2020 Z47.89 Encounter for other orthopedic a ftercare Fredrick Walker MD 05/02/2020 M51.17 Intervertebral disc disorders with radiculopathy, lumbosacral region Isidra Vivas PA-C 05/02/2020 M51.17 Intervertebral disc disorders with radiculopathy, lumbosacral region Fredrick Walker MD 05/02/2020 M48.062 Spinal stenosis, lumbar region w ith neurogenic claudication Isidra Vivas PA-C 05/02/2020 M48.062 Spinal stenosis, lumbar region w ith neurogenic claudication Fredrick Walker MD 05/01/2020 M51.17 Intervertebral disc disorders with radiculopathy, lumbosacral region Fredrick Walker MD 05/01/2020 M48.062 Spinal stenosis, lumbar region w ith neurogenic claudication Fredrick Walker MD Plan of Treatment Future Appointment(s):* 06/13/2020 1:45 pm - Dashawn Ball at [place] 05/01/2020 - Fredrick Walker MD* M51.17 Intervertebral disc disorders with radiculopathy, lumbosacral region* New Medication:* Gabapentin 300 mg - 1 by mouth twice a day * Follow up:* post op * M48.062 Spinal stenosis, lumbar region with neurogenic claudication Functional Status Description No Information Available Mental Status Description No Information Available Referrals Refer to Dr Reason for Referral Status Appt Date Fredrick Walker MD SURGERY PER [employer] APPROVAL FOR L5/S1 SURGERY (35056) TO SURGERY NT Created [address] [place] [address] [phone] Fredrick Walker MD OFFICE VISITS PER [employer] DANIEL ROVAL FOR 1 EVAL AND 3 FOLLOW UP'S ON SPINE (LEFT SIDE SCIATICA TO CHART NT Created [address] [place] [address] [phone]
--- OUTSIDE RECORDS SUMMARY | 2020-08-07 08:53 | CCD ---
Author Author [facility] Address Unknown Phone Unavailable Care Team Providers Care Data Network Architect Name Role Phone MCELHERAN, TRINO PA Unavailable Unavailable MCELHERAN, TRINO PA Unavailable Unavailable MCELHERAN, TRINO PA Unavailable Unavailable MCELHERAN, TRINO PA Unavailable Unavailable MCELHERAN, TRINO PA Unavailable Unavailable MCELHERAN, TRINO PA Unavailable Unavailable MCELHERAN, TRINO PA Unavailable Unavailable MCELHERAN, TRINO PA Unavailable Unavailable MCELHERAN, TRINO PA Unavailable Unavailable MCELHERAN, TRINO PA Unavailable Unavailable MCELHERAN, TRINO PA Unavailable Unavailable MCELHERAN, TRINO PA Unavailable Unavailable MCELHERAN, RTINO PA Unavailable Unavailable MCELHERAN, TRINO PA Unavailable Unavailable MCELHERAN, TRINO PA Unavailable Unavailable MCELHERAN, TRINO PA Unavailable Unavailable MCELHERAN, TRINO PA Unavailable Unavailable MCELHERAN, TRINO PA Unavailable Unavailable MCELHERAN, TRINO PA Unavailable Unavailable MCELHERAN, TRINO PA Unavailable Unavailable MCELHERAN, TRINO PA Unavailable Unavailable MCELHERAN, TRINO PA Unavailable Unavailable MCELHERAN, TRINO PA Unavailable Unavailable MCELHERAN, TRINO PA Unavailable Unavailable MCELHERAN, TRINO PA Unavailable Unavailable MCELHERAN, TRINO PA Unavailable Unavailable MCELHERAN, TRINO PA Unavailable Unavailable MCELHERAN, TRINO PA Unavailable Unavailable Willson, L Fredrick MD Unavailable Unavailable Willson, L Fredrick MD Unavailable Unavailable Willson, L Fredrick MD Unavailable Unavailable Willson, L Fredrick MD Unavailable Unavailable Willson, L Fredrick MD Unavailable Unavailable Willson, L Fredrick MD Unavailable Unavailable Willson, L Fredrick MD Unavailable Unavailable Willson, L Fredrick MD Unavailable Unavailable Willson, L Fredrick MD Unavailable Unavailable Willson, L Fredrick MD Unavailable Unavailable Willson, L Fredrick MD Unavailable Unavailable Willson, L Fredrick MD Unavailable Unavailable Willson, L Fredrick MD Unavailable Unavailable Willson, L Fredrick MD Unavailable Unavailable Willson, L Fredrick MD Unavailable Unavailable Willson, L Fredrick MD Unavailable Unavailable Willson, L Fredrick MD Unavailable Unavailable Willson, L Fredrick MD Unavailable Unavailable Willson, L Fredrick MD Unavailable Unavailable Willson, L Fredrick MD Unavailable Unavailable Willson, L Ferdrick MD Unavailable Unavailable Willson, L Fredrick MD Unavailable Unavailable Willson, L Fredrick MD Unavailable Unavailable Willson, L Fredrick MD Unavailable Unavailable Willson, L Fredrick MD Unavailable Unavailable Willson, L Fredrick MD Unavailable Unavailable Willson, L Fredrick MD Unavailable Unavailable Willson, L Fredrick MD Unavailable Unavailable Willson, L Fredrick MD Unavailable Unavailable Willson, L Fredrick MD Unavailable Unavailable Willson, L Fredrick MD Unavailable Unavailable Willson, L Fredrick MD Unavailable Unavailable Willson, L Fredrick MD Unavailable Unavailable Willson, L Fredrick MD Unavailable Unavailable Willson, L Fredrick MD Unavailable Unavailable Willson, L Fredrick MD Unavailable Unavailable Willson, L Fredrick MD Unavailable Unavailable Willson, L Fredrick MD Unavailable Unavailable Willson, L Fredrick MD Unavailable Unavailable Willson, L Fredrick MD Unavailable Unavailable Willson, L Fredrick MD Unavailable Unavailable Willson, L Fredrick MD Unavailable Unavailable Willson, L Fredrick MD Unavailable Unavailable Willson, L Fredrick MD Unavailable Unavailable Willson, L Fredrick MD Unavailable Unavailable Willson, L Fredrick MD Unavailable Unavailable Willson, L Fredrick MD Unavailable Unavailable Re-disclosure Warning The records that you are about to access may contain information from federally-assisted alcohol or drug abuse programs. If such information is present, then the following federally mandated warning applies: This information has been disclosed to you from records protected by federal confidentiality rules (42 CFR part 2). The federal rules prohibit you from making any further disclosure of this information unless further disclosure is expressly permitted by the written consent of the person to whom it pertains or as otherwise permitted by 42 CFR part 2. A general authorization for the release of medical or other information is NOT sufficient for this purpose. The Federal rules restrict any use of the information to criminally investigate or prosecute any alcohol or drug abuse patient.The records that you are about to access may contain highly sensitive health information, the redisclosure of which is protected by Article 27-F of the [facility] Public Health law. If you continue you may have access to information: Regarding HIV / AIDS; Provided by facilities licensed or operated by the [facility] Office of Mental Health; or Provided by the [facility] Office for People With Developmental Disabilities. If such information is present, then the following [facility] mandated warning applies: This information has been disclosed to you from confidential records which are protected by state law. State law prohibits you from making any further disclosure of this information without the specific written consent of the person to whom it pertains, or as otherwise permitted by law. Any unauthorized further disclosure in violation of state law may result in a fine or senior care sentence or both. A general authorization for the release of medical or other information is NOT sufficient authorization for further disc losure. Encounters Encounter Providers Location Date Indications Data Source(s ) Office Visit Attender: TRINO ANTONIO Physical Therapy 07/11/2020 07:30:00 AM EST [facility] ([facility] ) Office Visit Attender: Fredrick Willson MD Physical Therapy 2019 12:30:00 PM EST [facility] ([facility]) Outpatient Attender: Fredrick Willson MD Physical Therapy 05/01/2020 0 2:00:00 PM EDT [facility] ([facility] ) Medications Medication Brand Name Start Date Product Form Dose Route Admi nistrative Instructions Pharmacy Instructions Status Indications Reaction Description Data Source(s) Acetaminophen 325 MG / Hydrocodone Bitartrate 5 MG Ora l Tablet Hydrocodone-Acetaminophen 05/01/2020 12:00:00 AM EDT ORAL active [facility] ([facility] ) gabapentin 300 MG Oral Capsule Gabapentin 05/01/2020 12:00:00 AM EDT ORAL active [facility] ([facility] ) Insurance Providers Payer name Policy type / Coverage type Policy ID Covered constitution party ID Covered constitution party's relationship to mora Policy Mora Plan Information [facility] ACTIVE DUTY [id number] SP [id number] [facility] HUMANA - O/P [id number] 18 [id number] ANSI-Not a Secondary Insurance [id number] N REGIONAL CLAIMS SOULEYMANE -O/P [id number] 18 [id number] ACTIVE DUTY [id number] SP [id number] U [id number] Self [id number] FOR LIFE U [id number] Self [id number] [employer] [place] O [id number] S [id number] Surgeries/Procedures Procedure Description Date Indications Data Source(s) Laminectomy One Interspace, Lumbar 05/02/2020 12:00:00 AM EDT [facility] ([facility] ) Laminectomy One Interspace, Lumbar 05/02/2020 12:00:00 AM EDT [facility] ([facility] ) X-Ray Spine Lumbosacral Complete Inc Bending Views Min Of 6 05/01/2020 12:00:00 AM EDT [facility] ([facility] ) Results ID Date Data Source [id number] 05/02/2020 06:59:00 PM EDT [facility] ([facility] ) Name Value Range Interpretation Code Description Data Verito rce(s) Supporting Document(s) Surgical pathology study Laboratory test result [facility] ([facility] ) FINAL DIAGNOSIS Intervertebral disc L5-S1: Hyaline and fibrocartilage with myxoid/degenerative changes. 05/06/2020 - 1102 CLINICAL DIAGNOSIS Herniated or ruptured disc 05/03/2020 - 1250 GROSS DIAGNOSIS Received in formalin labeled "disc and tissue designated L5-S1" is a 6 x 2 x 1.5 cm. aggregate of white pale lofton fibrillar soft tissue and minute bone fragments. Functional Architect in one. - 05/03/2020 - 1250 Signed Edinson Lopez MD 05/06/2020 1309 ID Date Data Source [id number] 05/02/2020 03:00:00 PM EDT [facility] ([facility] ) Name Value Range Interpretation Code Description Data Verito rce(s) Supporting Document(s) AB Screen (Indirect Ronak)Vis Laboratory test result [facility] ([facility] ) Blood Type Laboratory test result [facility] ([facility] ) ID Date Data Source [id number] 05/02/2020 01:36:00 PM EDT [facility] Name Value Range Interpretation Code Description Data Verito rce(s) Supporting Document(s) Laboratory test finding (navigational concept) Laboratory test result [facility] ([facility]) A false negative result may occur if a s pecimen is improperly collected, transported or handled. False [...] pathogens. DISCLAIMER: Testing was performed using the [employer] SARS-CoV-2 test. This test was developed and its performance characteristics determined by [employer]. This test has not been FDA cleared [...] the authorization is terminated or revoked sooner. Procedure Vital Signs ID Date Data Source UNK Name Value Range Interpretation Code Description Data Source(s) Body mass index (BMI) [Ratio] 31.5 kg/m2 31.5 k g/m2 [facility] ([facility]) Body weight 186.50 [lb_av] 186.50 [lb_av] [facility] T ([facility]) Body height 64.5 [in_i] 64.5 [in_i] [facility] ([facility] ) 5'4.50" Body temperature 96.9 [degF] 96.9 [degF] [facility] ([facility])
--- OUTSIDE RECORDS SUMMARY | 2020-08-07 08:53 | CCD ---
Continuity of Care Document (CCD) Created on: 07/11/2020 Gudelia Kidd External Reference #: [id number] : [id number] Sex: Female Author Author Gudelia DALE P.A. Organization Unknown Address [address] [place] [address] Phone [phone] Care Team Providers Care Automobiles Salesperson Name Role Phone Kelly Portillo AUTM [phone] Problems Description No Information Available Social History [...] H/L Range Note Laboratory test finding 05/02/2020 [facility] [address] [place] [address] [phone] - Pathology Request For Service (SEE NOTE) 1 Type & Screen -Incl Blood Type,Krunal,AB SC 05/02/2020 [facility] [address] [place] [phone] [phone] - Blood Type A POSITIVE Normal AB Screen (Indirect Ronak)Vis NEGATIVE Normal Laboratory test finding 05/02/2020 [facility] [address] [place] [address] [phone] - Sars Covid-19 Amplification NEGATIVE Normal [...] fibrillar soft tissue and minute bone fragments. Informatics Coordinator in one. - 05/03/2020 - 1249 Signed [...] pathogens. DISCLAIMER: Testing was performed using the [employer] SARS-CoV-2 test. This test was developed and its performance characteristics determined by [employer]. This test has not been FDA cleared [...] sooner. 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 05/15/2020 Z47.89 Encounter for other orthopedic a [...] SURGERY PER [employer] APPROVAL FOR L5/S1 SURGERY (90564) TO SURGERY NT Created [address] [place] [address] [phone] Fredrick Willson MD OFFICE VISITS PER [employer] DANIEL ROVAL FOR 1 EVAL AND 3 FOLLOW UP'S ON SPINE (LEFT SIDE SCIATICA TO CHART NT Created [address] [place] [address] [phone]
--- OUTSIDE RECORDS SUMMARY | 2020-08-07 08:53 | CCD | Continuity of Care Document ---
Author Author Gudelia WALKER MD Organization Unknown Address [address] [address] Phone [phone] Care Team Providers Care Named Account Executive Name Role Phone Kelly Portillo AUTM [phone] Problems Description No Information Available Social History [...] H/L Range Note Laboratory test finding 05/02/2020 [facility] [address] [place] [phone] - Pathology Request For Service (SEE NOTE) 1 Type & Screen -Incl Blood Type,Krunal,AB SC 05/02/2020 [facility] [address] [place] [phone] - Blood Type A POSITIVE Normal AB Screen (Indirect Ronak)Vis NEGATIVE Normal Laboratory test finding 05/02/2020 [facility] [address] [place] [address] [phone] - Sars Covid-19 Amplification NEGATIVE Normal Negative 2 1 FINAL DIAGNOSIS Intervertebral disc L5-S1: Hyaline and fibrocartilage with myxoid/degenerative changes. 05/06/2020 - 1102 CLINICAL DIAGNOSIS Herniated or ruptured disc 05/03/2020 - 0 GROSS DIAGNOSIS Received in formalin labeled "disc and tissue designated L5-S1" is a 6 x 2 x 1.5 cm. aggregate of white pale lofton fibrillar soft tissue and minute bone fragments. Pipe Fitter Ammonia in one. - 05/03/2020 - 0 Signed [...] pathogens. DISCLAIMER: Testing was performed using the [employer] SARS-CoV-2 test. This test was developed and its performance characteristics determined by [employer]. This test has not been FDA cleared [...] sooner. Procedures Date Code Description Status 05/02/2020 14812 Laminectomy One Interspace, Lumb ar Completed 05/02/2020 15906 Laminectomy One Interspace, Lumb ar Completed 05/01/2020 27799 X-Ray Spine Lumbosacral Complete Inc Bending Views Min Of 6 Completed Medical Devices Description No Information Available Encounters Type Date Location Provider Dx Diagnosis Office Visit 05/01/2020 2:00p [place] Fredrick Walker MD M51.17 Intvrt disc disorders w [...] claudication Fredrick Walker MD Plan of Treatment 05/15/2020 - Fredrick Walker MD* Z47.89 Encounter for other orthopedic aftercare * Follow up:* in 4-6 weeks for back recheck with [facility] per blb Functional Status Description No Information Available Mental Status Description No Information Available Referrals Refer to Dr Reason for Referral Status Appt Date Fredrick Walker MD SURGERY PER [employer] APPROVAL FOR L5/S1 SURGERY (61881) TO SURGERY NT Created [address] [place] [address] [phone] Fredrick Walker MD OFFICE VISITS PER [employer] DANIEL ROVAL FOR 1 EVAL AND 3 FOLLOW UP'S ON SPINE (LEFT SIDE SCIATICA TO CHART NT Created [address] [place] [address] [phone]
--- OUTSIDE RECORDS SUMMARY | 2020-08-07 08:53 | CCD | Continuity of Care Document ---
Author Author Gudelia WALKER MD Organization Unknown Address [address] [address] Phone [phone] Care Team Providers Care Claim Investigator Name Role Phone Adrian Carmona DO AUTM [phone] Problems Description No Information Available Social History [...] H/L Range Note Laboratory test finding 05/02/2020 [facility] [address] [place] [phone] - Pathology Request For Service (SEE NOTE) 1 Type & Screen -Incl Blood Type,Krunal,AB SC 05/02/2020 [facility] [address] [place] [address] [phone] - Blood Type A POSITIVE Normal AB Screen (Indirect Ronak)Vis NEGATIVE Normal Laboratory test finding 05/02/2020 [facility] [address] [place] [address] [phone] - Sars Covid-19 Amplification NEGATIVE Normal [...] fibrillar soft tissue and minute bone fragments. Cognos Bi Administrator in one. - 05/03/2020 - 1249 Signed [...] pathogens. DISCLAIMER: Testing was performed using the [employer] SARS-CoV-2 test. This test was developed and its performance characteristics determined by [employer]. This test has not been FDA cleared [...] sooner. Procedures Date Code Description Status 05/02/2020 83840 Laminectomy One Interspace, Lumb ar Completed 05/02/2020 59245 Laminectomy One Interspace, Lumb ar Completed 05/01/2020 90134 X-Ray Spine Lumbosacral Complete Inc Bending Views Min Of 6 Completed Medical Devices Description No Information Available Encounters Type Date Location Provider Dx Diagnosis Office Visit 05/01/2020 2:00p [place] Fredrick Walker MD M51.17 Intvrt disc disorders w radiculopathy, lumbosacral region M48.062 Spinal stenosis, lumbar mei on with neurogenic claudication Assessments Date Code Description Provider 05/02/2020 M51.17 Intervertebral disc disorders with radiculopathy, [...] Walker MD Plan of Treatment Future Appointment(s):* 05/15/2020 1:30 pm - Fredrick Walker MD at [place] 05/01/2020 - Fredrick Walker MD* M51.17 Intervertebral [...] SURGERY PER [employer] APPROVAL FOR L5/S1 SURGERY (92152) TO SURGERY NT Created [address] [place] [address] [phone] Fredrick Walker MD OFFICE VISITS PER [employer] DANIEL ROVAL FOR 1 EVAL AND 3 FOLLOW UP'S ON SPINE (LEFT SIDE SCIATICA TO CHART NT Created [address] [place] [address] [phone]
[2020-08-07 09:43] LABS: BASO % 0.5 % (0.0-1.0); EOS % 0.8 % (0.0-3.0); HEMATOCRIT 40.7 % (36.0-47.0); HEMOGLOBIN 13.1 g/dl (12.0-15.5); LYMPH % 26.4 % (24.0-44.0); MEAN CORPUSCULAR HGB CONC 32.2 g/dl (32.0-36.5); MEAN CORPUSCULAR VOLUME 90.2 fl (80.0-96.0); MONO # 0.4 10^3/uL (0.0-0.8); MONO % 11.3 % (0.0-5.0); NEUTROPHILS # 2.4 10^3/uL (1.5-8.5); NEUTROPHILS % 60.7 % (36.0-66.0); PLATELET COUNT, AUTOMATED 336 10^3/uL (150-450); RED BLOOD COUNT 4.51 10^6/uL (4.00-5.40); WHITE BLOOD COUNT 3.9 10^3/uL (4.0-10.0)
--- OUTSIDE RECORDS SUMMARY | 2020-08-07 09:51 | CCD ---
Author Author [facility] Address Unknown Phone Unavailable Care Team Providers Care Vp Purchasing Name Role Phone MCELHERAN, TRINO PA Unavailable [...] Unavailable Unavailable MCELHERAN, TRINO PA Unavailable Unavailable MCELAN, TRINO PA Unavailable Unavailable MCELHERAN, TRINO PA Unavailable Unavailable [facility], TRINO PA Unavailable Unavailable MCELHERAN, TRINO PA Unavailable Unavailable MCELHERAN, TRINO PA Unavailable Unavailable MCELHERAN, TRINO PA Unavailable Unavailable MCELHERAN, TRINO PA Unavailable Unavailable MCELHERAN, TRINO PA Unavailable Unavailable MCELAN, TRINO PA Unavailable Unavailable MCELHERAN, TRINO PA [...] is protected by Article 27-F of the [facility] Public Health law. If you continue you may have access to information: Regarding HIV / AIDS; Provided by facilities licensed or operated by the [facility] Office of Mental Health; or Provided by the [facility] Office for People With Developmental Disabilities. If such information is present, then the following [facility] mandated warning applies: This information [...] law may result in a fine or fci sentence or both. A general authorization for the release of medical or other information is NOT sufficient authorization for further disc losure. Encounters Encounter Providers Location Date Indications Data Source(s ) Office Visit Attender: TRINO ANTONIO Physical Therapy 07/11/2020 07:30:00 AM EST [facility] ([facility]) Office Visit Attender: Fredrick Willson MD Physical Therapy 2019 12:30:00 PM EST [facility] ([facility]) Outpatient Attender: Fredrick Willson MD Physical Therapy 05/01/2020 0 2:00:00 PM EDT [facility] ([facility] ) Medications Medication Brand Name Start Date Product Form Dose Route Admi nistrative Instructions Pharmacy Instructions Status Indications Reaction Description Data Source(s) Acetaminophen 325 MG / Hydrocodone Bitartrate 5 MG Ora l Tablet Hydrocodone-Acetaminophen 05/01/2020 12:00:00 AM EDT ORAL active [facility] ([facility] ) gabapentin 300 MG Oral Capsule Gabapentin 05/01/2020 12:00:00 AM EDT ORAL active [facility] ([facility] ) Insurance Providers Payer name Policy type / Coverage type Policy ID Covered democrat ID Covered democrat's relationship to mora Policy Mora Plan Information [facility] ACTIVE DUTY [id number] SP [id number] [facility] HUMANA - O/P [id number] 18 [id number] ANSI-Not a Secondary Insurance [id number] N REGIONAL CLAIMS [place]LEYMAN[place] -O/P [id number] 18 [id number] ACTIVE DUTY [id number] SP [id number] U [id number] Self [id number] FOR LIFE U [id number] Self [id number] [employer] [place] O [id number] S [id number] Surgeries/Procedures Procedure Description Date Indications Data Source(s) Laminectomy One Interspace, Lumbar 05/02/2020 12:00:00 AM EDT [facility] ([facility] ) Laminectomy One Interspace, Lumbar 05/02/2020 12:00:00 AM EDT [facility] ([facility] ) X-Ray Spine Lumbosacral Complete Inc Bending Views Min Of 6 05/01/2020 12:00:00 AM EDT [facility] ([facility] ) Results ID Date Data Source [id number] 05/02/2020 06:59:00 PM EDT [facility] ([facility] ) Name Value Range Interpretation Code Description Data Verito rce(s) Supporting Document(s) Surgical pathology study Laboratory test result [facility] ([facility] ) FINAL DIAGNOSIS Intervertebral disc L5-S1: Hyaline and fibrocartilage with myxoid/degenerative changes. 05/06/2020 - 1102 CLINICAL DIAGNOSIS Herniated or ruptured disc 05/03/2020 - 1250 GROSS DIAGNOSIS Received in formalin labeled "disc and tissue designated L5-S1" is a 6 x 2 x 1.5 cm. aggregate of white pale lofton fibrillar soft tissue and minute bone fragments. Certified Activities Director in one. - 05/03/2020 - 1250 Signed Edinson Lopez MD 05/06/2020 1309 ID Date Data Source [id number] 05/02/2020 03:00:00 PM EDT [facility] ([facility] ) Name Value Range Interpretation Code Description Data Verito rce(s) Supporting Document(s) AB Screen (Indirect Ronak)Vis Laboratory test result [facility] ([facility] ) Blood Type Laboratory test result [facility] ([facility]) ID Date Data Source [id number] 05/02/2020 01:36:00 PM EDT [facility] ([facility]) Name Value Range Interpretation Code Description Data Verito rce(s) Supporting Document(s) Laboratory test finding (navigational concept) Laboratory test result [facility] ([facility]) A false negative result may occur if [...] pathogens. DISCLAIMER: Testing was performed using the [employer] SARS-CoV-2 test. This test was developed and its performance characteristics determined by [employer]. This test has not been FDA cleared [...] (BMI) [Ratio] 31.5 kg/m2 31.5 k g/m2 [facility] ([facility]) Body weight 186.50 [lb_av] 186.50 [lb_av] [facility] T ([facility]) Body height 64.5 [in_i] 64.5 [in_i] [facility] ([facility] ) 5'4.50" Body temperature 96.9 [degF] 96.9 [degF] [facility] ([facility])
[2020-08-07 10:10] LABS: HCG, SERUM QUALITATIVE NEGATIVE (NEGATIVE)
[2020-08-07 10:20] LABS: CK-MB VALUE MASS 1.2 NG/ML (<3.6); CPK CREATINE PHOSPHOKINASE 126 U/L (26-192); MB/CK RELATIVE INDEX 0.95 (< OR =4); TROPONIN I < 0.02 NG/ML (< 0.10)
--- NOTE | 2020-08-07 10:36 | REP ---
INDICATION: pain. COMPARISON: None. TECHNIQUE: Helical scanning is acquired and overlapping 2 mm high resolution axial images were generated and reviewed at bone and soft tissue window settings. Coronal and sagittal multiplanar re-formations images are generated. FINDINGS: There is no evidence of cervical spine element fracture. No skull base fracture is seen. Cervical vertebral body heights are preserved. Alignment is normal. Facet joints are normally aligned bilaterally at each cervical level on multiplanar re-formations images. There is no evidence of intraspinal or paraspinal hematoma. No extra vertebral abnormality is seen. There is no evidence of cervical disc protrusion or neck mass or adenopathy. The lung apices are clear. IMPRESSION: Negative CT study of the cervical spine without contrast. No fracture or other acute abnormality seen. <Electronically signed by Jun Pace > 08/07/20 1034
--- NOTE | 2020-08-07 10:40 | REP ---
INDICATION: pain. COMPARISON: None. TECHNIQUE: Helical scanning is acquired and 4 mm axial images re-formatted. Coronal and sagittal MPR images are provided. FINDINGS: Lumbar vertebral body heights are preserved. Alignment is normal. No fracture or collapse is seen. Pedicles and posterior elements are intact. There is a minimal dextroconvex thoracic curvature visible on coronal MPR images. The visualized posterior ribs are unremarkable. Visualized lung cabrera are clear. No paravertebral soft tissue mass is appreciated. No evidence of spinal canal encroachment seen. IMPRESSION: Minimal thoracic spine curvature, dextroconvex. No acute thoracic spine abnormality. <Electronically signed by Jun Pace > 08/07/20 [id number]
--- NOTE | 2020-08-07 11:28 | REP ---
INDICATION: pain between shoulder blades. COMPARISON: Comparison chest x-ray 10 May 2018.. TECHNIQUE: Semi-erect portable AP chest radiograph. FINDINGS: The lungs are well inflated and clear. The pleural angles are sharp. Heart size is normal. Pulmonary vasculature is not increased. No rib or other skeletal abnormality. IMPRESSION: Negative portable chest x-ray. <Electronically signed by Jun Pace > 08/07/20 [id number]
[2020-08-07 12:05] VITALS: BP 116/56
--- NOTE | 2020-08-08 07:33 | ECGEPIP ---
[facility] - ED Test Date: 2020-08-07 Pat Name: MERCEDES RAUSCH Department: Room: - Gender: Female Intake Assessor: [facility] : 1995 Requested By: MOHAMUD Mendoza PA-C Order Number: [id number] Reading MD: Yesi Crouch Measurements Intervals [place] Rate: 69 P: 36 OR: 166 QRS: 84 QRSD: 94 T: 43 QT: 392 QTc: 420 Interpretive Statements Normal sinus rhythm with sinus arrhythmia Nonspecific T wave abnormality No prior Electronically Signed on 08-08-2020 7:32:46 EST by Yesi Crouch
== END 2020-08-07 12:06 | disposition home or self-care (01) ==
LOC: M ED 08:45
DX: S29.012A Strain of muscle and tendon of back wall of thorax, initial encounter (principal); X58.XXXA Exposure to other specified factors, initial encounter; Y92.89 Other specified places as the place of occurrence of the external cause